=== PATIENT | male | born 1985 | race Caucasian/White ===

== ENCOUNTER 2017-05-23 00:35 | Emergency (ER) | payer MEDICAID ==
[~2017-05-23] VITALS: Ht 182.9 cm; Wt 77.8 kg
[~2017-05-23 00:35] MED LIST: CHLO10MO PO; CIPR7.5D2 EACH EAR; HYDR-3686 PO; KEN0.1O TP; NO HOME MEDS
[2017-05-23] MEDS ORDERED: naproxen 500mg tablet PO ONE (01:30)
[2017-05-23] MEDS ORDERED: HYDROcodone/acetaminophen 10/325mg tab PO ONE (01:30)
[2017-05-23] MEDS ORDERED: sulfamethoxazole/trimethoprim DS (800/160mg) tablet PO ONE (01:30)
[2017-05-23] MEDS ORDERED: HYDR-569 PO (02:19)
[2017-05-23] MEDS ORDERED: SULF1TAB49 PO (02:19)
[2017-05-23] MEDS ORDERED: NAPR-56 PO (02:19)
[2017-05-23] MEDS ORDERED: ACYC-202 PO (02:45)
[2017-05-23 02:47] VITALS: BP 122/58
[2017-05-24] MEDS ORDERED: DOXY100C43 PO (12:14)
== END 2017-05-23 02:48 | disposition home or self-care (01) ==
LOC: ER 00:35
DX: L03.113 Cellulitis of right upper limb (principal); B00.9 Herpesviral infection, unspecified; G89.29 Other chronic pain; Z56.0 Unemployment, unspecified; Z60.2 Problems related to living alone; Z79.899 Other long term (current) drug therapy
CPT/HCPCS: 10160; 99284; A6257; 20610

== ENCOUNTER 2017-05-24 09:51 | Emergency (ER) | payer MEDICAID ==
[~2017-05-24] VITALS: Ht 185.4 cm; Wt 78.5 kg
[~2017-05-24 09:51] MED LIST changes: +ACYC-202 PO; +HYDR-569 PO; +NAPR-56 PO; +SULF1TAB49 PO
[2017-05-24 10:00] VITALS: BP 108/81
[2017-05-24] MEDS ORDERED: LIDOcaine 1.5% w/epinephrine 1:200,000 5ml ampul IJ ONE ×2 (10:15→11:05)
[2017-05-24] MEDS ORDERED: DOXY100C43 PO (12:14)
== END 2017-05-24 12:25 | disposition home or self-care (01) ==
LOC: ER 09:53
DX: L02.413 Cutaneous abscess of right upper limb (principal); G89.29 Other chronic pain; Z56.0 Unemployment, unspecified; Z60.2 Problems related to living alone; Z79.899 Other long term (current) drug therapy
CPT/HCPCS: 10060; 99283; A6449; J3490; A6266

== ENCOUNTER 2017-08-15 15:16 | Emergency (ER) | payer MEDICAID ==
[~2017-08-15] VITALS: Ht 182.9 cm; Wt 78.8 kg
[~2017-08-15 15:16] MED LIST changes: -ACYC-202 PO; -NAPR-56 PO; -SULF1TAB49 PO
[2017-08-15 16:40] VITALS: BP 127/63
== END 2017-08-15 16:54 | disposition home or self-care (01) ==
LOC: ER 15:18
DX: R07.9 Chest pain, unspecified (principal); J02.9 Acute pharyngitis, unspecified; G89.29 Other chronic pain; Z60.2 Problems related to living alone; Z56.0 Unemployment, unspecified; Z79.899 Other long term (current) drug therapy; Z87.891 Personal history of nicotine dependence
CPT/HCPCS: 71046; 93005; 99284

== ENCOUNTER 2017-10-05 19:36 | Emergency (ER) | payer MEDICAID ==
[~2017-10-05] VITALS: Ht 185.4 cm; Wt 78.6 kg
[2017-10-05 19:40] VITALS: BP 140/105
[2017-10-05] MEDS ORDERED: MUPI15CR TOP (20:01)
[2017-10-05] MEDS ORDERED: BACDS PO (20:01)
== END 2017-10-05 20:15 | disposition home or self-care (01) ==
LOC: ER 19:37
DX: L03.114 Cellulitis of left upper limb (principal); L03.113 Cellulitis of right upper limb; L81.8 Other specified disorders of pigmentation; G89.29 Other chronic pain; Z60.2 Problems related to living alone; Z56.0 Unemployment, unspecified; Z79.899 Other long term (current) drug therapy
CPT/HCPCS: 99283

== ENCOUNTER 2019-02-01 22:39 | Emergency (ER) | payer MEDICAID ==
[~2019-02-01] VITALS: Ht 180.3 cm; Wt 81.8 kg
[~2019-02-01 22:39] MED LIST changes: +HYDR-4383 PO; -HYDR-569 PO; +MUPI15CR TOP
[2019-02-01] MEDS ORDERED: LORazepam 2 mg/ml vial IM ONE (23:00)
[2019-02-01] MEDS ORDERED: HYDROcodone/acetaminophen 10/325mg tab PO ONE (23:00)
[2019-02-01] MEDS ORDERED: LIDOcaine 1% w/EPI 1:200,000 injection 10mL vial IM ONE (23:35)
[2019-02-01] MEDS ORDERED: LIDOcaine 4% (40 mg/ml) topical solution 50ml TP ONE (23:35)
[2019-02-01] MEDS ORDERED: phenylephrine 1% (X-tra strg) 15ml nasal spray NS ONE (23:35)
[2019-02-01] MEDS ORDERED: LIDOcaine 1% W/epiNEPHrine 1:100,000 20ml vial IJ ONE (23:40)
[2019-02-02] MEDS ORDERED: CEPH500C5 PO (00:52)
[2019-02-02] MEDS ORDERED: cephalexin 500mg capsule PO ONE (01:05)
[2019-02-02 01:27] VITALS: BP 138/93
== END 2019-02-02 01:20 ==
LOC: ER 22:39
DX: S02.2XXA Fracture of nasal bones, initial encounter for closed fracture (principal); S01.21XA Laceration without foreign body of nose, initial encounter; I10 Essential (primary) hypertension; G89.29 Other chronic pain; F41.9 Anxiety disorder, unspecified; F31.9 Bipolar disorder, unspecified; F17.200 Nicotine dependence, unspecified, uncomplicated; F12.90 Cannabis use, unspecified, uncomplicated; Z60.2 Problems related to living alone; Z56.0 Unemployment, unspecified; Z79.899 Other long term (current) drug therapy; Y04.8XXA Assault by other bodily force, initial encounter; Y93.89 Activity, other specified; Y92.143 Cell of prison as the place of occurrence of the external cause; Y99.8 Other external cause status
CPT/HCPCS: 12001; 21315; 70160; 96372; 99284; J2060

== ENCOUNTER 2019-04-03 22:14 | Emergency (ER) | payer MEDICAID ==
[~2019-04-03] VITALS: Ht 182.9 cm; Wt 88.6 kg
[~2019-04-03 22:14] MED LIST changes: +CEPH500C5 PO
[2019-04-03] MEDS ORDERED: CefTRIAXone 250MG IM Kit w/LIDOcaine IM ONE (22:40)
[2019-04-03] MEDS ORDERED: azithromycin 250mg tablet PO ONE (22:40)
[2019-04-03 22:42] LABS: CLARITY,URINE CLEAR (Clear); COLOR,URINE YELLOW (Yellow); GLUCOSE, URINE NEGATIVE (Neg); KETONES,URINE NEGATIVE (Neg); LEUKOCYTE ESTERASE ,URINE NEGATIVE (Neg); NITRITES, URINE NEGATIVE (Neg); OCCULT BLOOD,URINE NEGATIVE (Neg); PH,URINE 8.5 (4.8-8.0); PROTEIN,URINE NEGATIVE (Neg); UROBILINOGEN,URINE 0.2 E.U/dL (0.2-1.0)
[2019-04-03 22:46] LABS: UA COLLECTION TYPE CLN CATCH MIDSTREAM
[2019-04-03 22:56] LABS: HEMATOCRIT 42.7 % (42.0-52.0); HEMOGLOBIN 14.5 g/dl (14.0-17.9)
[2019-04-03 22:58] LABS: BASOPHILS % (AUTO) 0.5 % (0-1); EOSINOPHILS # (AUTO) 0.3 X10'3 (0-0.9); LYMPHOCYTES # (AUTO) 3.8 X10'3 (1.1-4.8); LYMPHOCYTES % (AUTO) 39.5 % (21-51); MEAN CORPUSCULAR HEMOGLOBIN 27.9 PG (27.0-31.0); MEAN CORPUSCULAR VOLUME 82.1 FL (78-98); MONOCYTES # (AUTO) 0.9 X10'3 (0-0.9); MONOCYTES % (AUTO) 9.1 % (2-12); NEUTROPHILS # (AUTO) 4.7 X10'3 (1.8-7.7); NEUTROPHILS % (AUTO) 47.9 % (42-75); PLATELET COUNT 376 X10'3 (140-440); WHITE BLOOD COUNT 9.7 X10'3 (4.5-11.0)
[2019-04-03 23:05] LABS: ALANINE AMINOTRANSFERASE 59 U/L (12-78); ALBUMIN 4.2 G/DL (3.4-5.0); ALBUMIN/GLOBULIN RATIO 1.4 (1.1-1.5); ALKALINE PHOSPHATASE 83 IU/L (46-116); ANION GAP 7 (8-16); ASPARTATE AMINO TRANSFERASE 26 U/L (10-37); BILIRUBIN,TOTAL 0.2 MG/DL (0.1-1.0); BLOOD UREA NITROGEN 15 MG/DL (7-18); BUN/CREATININE RATIO 18.5 (5.4-32.0); CALCIUM 8.9 MG/DL (8.5-10.1); CHLORIDE 103 MMOL/L (99-107); CREATININE 0.81 MG/DL (0.60-1.10); GLUCOSE 104 MG/DL (70-104); LIPASE 100 U/L (73-393); POTASSIUM 3.4 MMOL/L (3.5-5.1); SODIUM 140 MMOL/L (135-145); TOTAL CARBON DIOXIDE 30.5 MMOL/L (24-32); TOTAL PROTEIN 7.3 G/DL (6.4-8.2); eGFR > 90 ML/MIN
[2019-04-03 23:25] VITALS: BP 138/98
== END 2019-04-03 23:28 | disposition home or self-care (01) ==
LOC: ER 22:14
DX: N34.2 Other urethritis (principal); I10 Essential (primary) hypertension; G89.29 Other chronic pain; F41.9 Anxiety disorder, unspecified; F31.9 Bipolar disorder, unspecified; F12.90 Cannabis use, unspecified, uncomplicated; F15.90 Other stimulant use, unspecified, uncomplicated; F17.200 Nicotine dependence, unspecified, uncomplicated; Z60.2 Problems related to living alone; Z79.899 Other long term (current) drug therapy
CPT/HCPCS: 36415; 80053; 81003; 83690; 85025; 87491; 87591; 96372; 99283; J0696

== ENCOUNTER 2019-05-07 11:16 | Emergency (ER) | payer MEDICAID ==
[~2019-05-07] VITALS: Ht 185.4 cm; Wt 83.0 kg
[2019-05-07 11:21] VITALS: BP 143/90
[2019-05-07 12:12] LABS: CLARITY,URINE CLEAR (Clear); COLOR,URINE YELLOW (Yellow); GLUCOSE, URINE NEGATIVE (Neg); KETONES,URINE NEGATIVE (Neg); LEUKOCYTE ESTERASE ,URINE NEGATIVE (Neg); NITRITES, URINE NEGATIVE (Neg); OCCULT BLOOD,URINE NEGATIVE (Neg); PROTEIN,URINE NEGATIVE (Neg); UROBILINOGEN,URINE 0.2 E.U/dL (0.2-1.0)
[2019-05-07 12:14] LABS: UA COLLECTION TYPE CLN CATCH MIDSTREAM
[2019-05-07] MEDS ORDERED: DOXY-1 PO (12:20)
== END 2019-05-07 12:32 | disposition home or self-care (01) ==
LOC: ER 11:16
DX: L73.9 Follicular disorder, unspecified (principal); B00.9 Herpesviral infection, unspecified; I10 Essential (primary) hypertension; G89.29 Other chronic pain; F41.9 Anxiety disorder, unspecified; F31.9 Bipolar disorder, unspecified; F12.90 Cannabis use, unspecified, uncomplicated; F15.90 Other stimulant use, unspecified, uncomplicated; Z60.2 Problems related to living alone; Z79.2 Long term (current) use of antibiotics; Z79.899 Other long term (current) drug therapy
CPT/HCPCS: 81003; 99283

== ENCOUNTER 2019-08-07 07:01 | Emergency (ER) | payer MEDICAID ==
[~2019-08-07] VITALS: Ht 185.4 cm; Wt 85.0 kg
[2019-08-07 07:02] VITALS: BP 138/99
[2019-08-07 07:36] LABS: CLARITY,URINE CLEAR (Clear); COLOR,URINE YELLOW (Yellow); GLUCOSE, URINE NEGATIVE (Neg); KETONES,URINE TRACE mg/dl (Neg); LEUKOCYTE ESTERASE ,URINE NEGATIVE (Neg); NITRITES, URINE NEGATIVE (Neg); OCCULT BLOOD,URINE NEGATIVE (Neg); PROTEIN,URINE NEGATIVE (Neg); UROBILINOGEN,URINE 0.2 E.U/dL (0.2-1.0)
[2019-08-07 07:46] LABS: UA COLLECTION TYPE VOIDED
[2019-08-07] MEDS ORDERED: PHEN-716 PO (08:14)
[2019-08-07] MEDS ORDERED: phenazopyridine 100mg tablet PO ONE (08:15)
== END 2019-08-07 08:21 | disposition home or self-care (01) ==
LOC: ER 07:01
DX: R30.0 Dysuria (principal); R36.9 Urethral discharge, unspecified; R10.30 Lower abdominal pain, unspecified; I10 Essential (primary) hypertension; G89.29 Other chronic pain; F41.9 Anxiety disorder, unspecified; F31.9 Bipolar disorder, unspecified; F17.200 Nicotine dependence, unspecified, uncomplicated; F12.90 Cannabis use, unspecified, uncomplicated; F15.90 Other stimulant use, unspecified, uncomplicated; Z60.2 Problems related to living alone; Z79.899 Other long term (current) drug therapy
CPT/HCPCS: 81003; 99283

== ENCOUNTER 2019-10-09 02:05 | Emergency (ER) | payer MEDICAID ==
[~2019-10-09] VITALS: Ht 180.3 cm; Wt 84.1 kg
[~2019-10-09 02:05] MED LIST changes: +PHEN-716 PO
[2019-10-09] MEDS ORDERED: azithromycin 250mg tablet PO ONE (02:45)
[2019-10-09] MEDS ORDERED: CefTRIAXone 250MG IM Kit w/LIDOcaine IM ONE (02:45)
[2019-10-09 02:59] VITALS: BP 137/104
== END 2019-10-09 03:01 | disposition home or self-care (01) ==
LOC: ER 02:06
DX: Z11.3 Encounter for screening for infections with a predominantly sexual mode of transmission (principal); R36.9 Urethral discharge, unspecified; I10 Essential (primary) hypertension; G89.29 Other chronic pain; F41.9 Anxiety disorder, unspecified; F31.9 Bipolar disorder, unspecified; F12.90 Cannabis use, unspecified, uncomplicated; F15.90 Other stimulant use, unspecified, uncomplicated; Z60.2 Problems related to living alone; Z79.2 Long term (current) use of antibiotics; Z79.899 Other long term (current) drug therapy
CPT/HCPCS: 36415; 87491; 87591; 96372; 99283; J0696

== ENCOUNTER 2020-01-23 20:57 | Emergency (ER) | payer MEDICAID ==
[~2020-01-23] VITALS: Ht 182.9 cm; Wt 78.8 kg
[2020-01-23 20:59] VITALS: BP 184/108
[2020-01-23] MEDS ORDERED: sulfamethoxazole/trimethoprim DS (800/160mg) tablet PO ONE (22:50)
[2020-01-23] MEDS ORDERED: cephalexin 250mg capsule PO ONE (22:50)
[2020-01-23] MEDS ORDERED: CEPH500C5 PO (22:53)
[2020-01-23] MEDS ORDERED: SULF1TAB49 PO (22:53)
== END 2020-01-23 22:59 | disposition home or self-care (01) ==
LOC: ER 20:58
DX: L03.115 Cellulitis of right lower limb (principal); I10 Essential (primary) hypertension; G89.29 Other chronic pain; F41.9 Anxiety disorder, unspecified; F31.9 Bipolar disorder, unspecified; F12.90 Cannabis use, unspecified, uncomplicated; F15.90 Other stimulant use, unspecified, uncomplicated; Z60.2 Problems related to living alone; Z79.2 Long term (current) use of antibiotics; Z79.899 Other long term (current) drug therapy
CPT/HCPCS: 99283

== ENCOUNTER 2020-02-14 03:54 | Emergency (ER) | payer MEDICAID ==
[~2020-02-14] VITALS: Ht 182.9 cm; Wt 72.4 kg
[~2020-02-14 03:54] MED LIST changes: -CEPH500C5 PO
[2020-02-14] MEDS ORDERED: cephalexin 500mg capsule PO ONE (04:30)
[2020-02-14] MEDS ORDERED: CEPH500C5 PO (05:18)
[2020-02-14 05:41] VITALS: BP 142/96
== END 2020-02-14 05:49 | disposition home or self-care (01) ==
LOC: ER 03:54
DX: S91.342A Puncture wound with foreign body, left foot, initial encounter (principal); I10 Essential (primary) hypertension; J45.909 Unspecified asthma, uncomplicated; G89.29 Other chronic pain; F41.9 Anxiety disorder, unspecified; F31.9 Bipolar disorder, unspecified; F12.90 Cannabis use, unspecified, uncomplicated; F15.90 Other stimulant use, unspecified, uncomplicated; F11.90 Opioid use, unspecified, uncomplicated; Z60.2 Problems related to living alone; Z79.899 Other long term (current) drug therapy; W45.8XXA Other foreign body or object entering through skin, initial encounter; Y93.89 Activity, other specified; Y92.89 Other specified places as the place of occurrence of the external cause; Y99.8 Other external cause status
CPT/HCPCS: 73630; 99283

== ENCOUNTER 2020-03-14 19:11 | Inpatient (IN) | payer MEDICAID ==
[~2020-03-14] VITALS: Ht 182.9 cm; Wt 94.8 kg
[~2020-03-14 19:11] MED LIST changes: +CEPH500C5 PO
--- NOTE | 2020-03-14 19:11 | NUR ---
Contacted lab to initiate MTP at the request of MD Stone.
[2020-03-14] MEDS ORDERED: iohexol 300mg/ml 100ml inj. ONE (19:18)
[2020-03-14] MEDS ORDERED: fentaNYL/PF 50MCG/1 ML 2ML syringe ONE (19:29)
--- NOTE | 2020-03-14 19:29 | NUR ---
per dr washington 1 unit blood, in rapid transfuer
[2020-03-14] MEDS ORDERED: fentaNYL/PF 50MCG/1 ML 2ML syringe IV ONE (19:30)
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
--- NOTE | 2020-03-14 19:30 | NUR ---
PER DR TELLO 2 L NS.
[2020-03-14 19:36] LABS: BASOPHILS # (AUTO) 0.1 X10'3 (0-0.2); BASOPHILS % (AUTO) 0.5 % (0-1); EOSINOPHILS # (AUTO) 0.2 X10'3 (0-0.9); EOSINOPHILS % (AUTO) 2.1 % (0-6); HEMATOCRIT 37.1 % (42.0-52.0); HEMOGLOBIN 11.9 g/dl (14.0-17.9); LYMPHOCYTES # (AUTO) 4.7 X10'3 (1.1-4.8); MEAN CORPUSCULAR HEMOGLOBIN 25.3 PG (27.0-31.0); MEAN CORPUSCULAR HGB CONC 32.1 g/dL (33.0-36.5); MEAN PLATELET VOLUME 7.5 FL (7.4-10.4); MONOCYTES # (AUTO) 0.6 X10'3 (0-0.9); NEUTROPHILS # (AUTO) 3.9 X10'3 (1.8-7.7); NEUTROPHILS % (AUTO) 41.4 % (42-75); PLATELET COUNT 400 X10'3 (140-440); RED CELL DISTRIBUTION WIDTH 15.4 % (11.5-14.5); WHITE BLOOD COUNT 9.4 X10'3 (4.5-11.0)
--- NOTE | 2020-03-14 19:37 | NUR ---
PT TO CT VIA [facility] WITH FAHEEM SALINAS, PT ON MONITOR.
[2020-03-14 19:51] LABS: ALANINE AMINOTRANSFERASE 259 U/L (12-78); ALBUMIN 3.7 G/DL (3.4-5.0); ALBUMIN/GLOBULIN RATIO 1.4 (1.1-1.5); ALKALINE PHOSPHATASE 68 IU/L (46-116); ANION GAP 10 (8-16); ASPARTATE AMINO TRANSFERASE 207 U/L (10-37); BILIRUBIN,TOTAL 0.2 MG/DL (0.1-1.0); BLOOD UREA NITROGEN 19 MG/DL (7-18); BUN/CREATININE RATIO 16.5 (5.4-32.0); CALCIUM 8.4 MG/DL (8.5-10.1); CHLORIDE 107 MMOL/L (99-107); CREATININE 1.15 MG/DL (0.60-1.10); GLUCOSE 161 MG/DL (70-104); POTASSIUM 3.4 MMOL/L (3.5-5.1); SODIUM 143 MMOL/L (135-145); TOTAL CARBON DIOXIDE 26.1 MMOL/L (24-32); TOTAL PROTEIN 6.4 G/DL (6.4-8.2); eGFR 74 ML/MIN
[2020-03-14 19:54] LABS: TROPONIN I < 0.04 NG/ML (0.0-0.05)
[2020-03-14] MEDS ORDERED: LIDOcaine 2% 10ml TOPICAL JELLY (Urojet) MM ONE (19:55)
[2020-03-14] MEDS ORDERED: normal saline 1000ML IV soln IVB ONE (20:05)
--- NOTE | 2020-03-14 20:06 | NUR ---
lab was contacted for MTP update they are aware that we are continuing the MTP - Per MD Jim he wants the 6 units crossmatched.
[2020-03-14] MEDS ORDERED: LIDOcaine 1% (10mg/ml) 2ml vial ONE (20:09)
[2020-03-14] MEDS ORDERED: iohexol 350MG/ML 100ml bottle IV ONE (20:21)
[2020-03-14] MEDS ORDERED: tranexamic acid 100mg/ml inj. IV ONE (20:25)
[2020-03-14] MEDS ORDERED: TETanus/Pertussis (Acell)/Diphther VAC/PF (Tdap-Adult) 0.5ml syringe IMVAC ONE (20:25)
[2020-03-14] MEDS ORDERED: tranexamic acid 1gm/0.7% sal. 100 ML IV ONE (20:25)
--- NOTE | 2020-03-14 20:25 | NUR ---
per MD Fernandez, give 1G txa then another 1G over 8 hrs, 2G ancef and a tetanus shot. Ordered entered.
[2020-03-14] MEDS ORDERED: heparin 10,000 units/1 ML INJ ONE (20:33)
[2020-03-14] MEDS ORDERED: ceFAZolin 2gm in dextrose, iso 50 ML IV ONE (20:35)
[2020-03-14] MEDS ORDERED: midazolam 2 mg/2 ml injection ONE (20:39)
[2020-03-14] MEDS ORDERED: fentaNYL /PF 50mcg/ml 5ml ampule ONE (20:39)
[2020-03-14] MEDS ORDERED: neostigmine methylsulfate 1 MG/ML 10ml vial ONE (20:42)
[2020-03-14] MEDS ORDERED: pancuronium br 1mg/ml inj IV ONE (20:42)
[2020-03-14] MEDS ORDERED: sevoflurane 250ml liquid IH ONE (20:42)
[2020-03-14] MEDS ORDERED: propofol inj 20 ML IV ONE (20:47)
[2020-03-14] MEDS ORDERED: rocuronium 10mg/ml inj IV ONE (20:48)
[2020-03-14] MEDS ORDERED: ePHEDrine 50MG/ML INJ. ONE (20:49)
--- NOTE | 2020-03-14 20:51 | NUR ---
BLOOD TRANSFUSSION DOCUMENTED ON THE [facility], BLOOD & BLOOD PRODUCT ADMINISTRATION RECORD, ADDENDUM A.
[2020-03-14 20:53] LABS: URINE AMPHETAMINE SCREEN POSITIVE (Neg); URINE BARBITUATE SCREEN NEGATIVE (Neg); URINE BENZODIAZEPINES SCREEN NEGATIVE (Neg); URINE CANNABINOID SCREEN NEGATIVE (Neg); URINE COCAINE SCREEN NEGATIVE (Neg); URINE METHADONE SCREEN POSITIVE (Neg); URINE OPIATE SCREEN NEGATIVE (Neg); URINE PHENCYCLIDINE SCREEN NEGATIVE (Neg)
[2020-03-14] MEDS ORDERED: meperidine/PF 25mg/ml syringe IV PRN ×3 (20:55)
[2020-03-14] MEDS ORDERED: morphine 2 MG/ML inj. syringe IV PRN (20:55)
[2020-03-14] MEDS ORDERED: ondansetron/PF 4mg/2ml inj IV PRN (20:55)
[2020-03-14] MEDS ORDERED: proCHLORperazine 10 MG/2 ml inj IV PRN (20:55)
[2020-03-14] MEDS ORDERED: ringers solution, lacted 1,000 ML IV SCH (20:55)
[2020-03-14] MEDS ORDERED: morphine 4 MG/ML inj SYRINge IV PRN (20:55)
[2020-03-14 21:04] LABS: CLARITY,URINE CLEAR (Clear); COLOR,URINE YELLOW (Yellow); GLUCOSE, URINE NEGATIVE (Neg); KETONES,URINE NEGATIVE (Neg); LEUKOCYTE ESTERASE ,URINE NEGATIVE (Neg); NITRITES, URINE NEGATIVE (Neg); OCCULT BLOOD,URINE MODERATE (Neg); PH,URINE 6.5 (4.8-8.0); PROTEIN,URINE 30 mg/dl (Neg); UROBILINOGEN,URINE 0.2 E.U/dL (0.2-1.0)
[2020-03-14 21:10] LABS: UA COLLECTION TYPE FOLEY CATH
[2020-03-14 21:32] LABS: BACTERIA,URINE FEW /HPF (Neg); WBC,URINE 0-4 /HPF (0-4)
[2020-03-14 21:33] LABS: HYALINE CASTS 0-3 /LPF (NEGATIVE); SQUAMOUS EPITHELIAL CELL,UR FEW /LPF (FEW)
[2020-03-14] MEDS ORDERED: ceFAZolin 1000mg inj ONE ×2 (21:54)
[2020-03-14] MEDS ORDERED: TRANEXAMIC ACID IV ONE (22:15)
[2020-03-14] MEDS ORDERED: NORMAL SALINE IV ONE (22:15)
[2020-03-14] MEDS ORDERED: morphine 10mg/ml inj. ONE (22:41)
[2020-03-14 23:10] VITALS: BP 120/79
--- NOTE | 2020-03-14 23:10 | NUR ---
Received from OR via BED, accompanied by Anesthesiologist LUIS ALBERTO and report given by Anesthesiolgist. PT IS INTUBATED, ON VENTILATOR. CXR DONE FOR ETT AND CVL PLACEMENT. FENTANYL AND VERSED GTTS STARTED FOR SEDATION AND PAIN CONTROL.PT HAS IO TO LLE, 20G PIV R FOOT, CVL RIJ AND R RADIAL ARTERIAL LINE. R LATERAL CT TO SX, NO AIR LEAK SEEN. SPLINT TO LFA. LARGE MIDLINE ABD DSG. FC PATENT. PT TEMP 35.6, VISHAL HUGGER IN PLACE. FC PATENT. SCDS ON.
[2020-03-14 23:20] VITALS: BP 179/128
[2020-03-14 23:30] VITALS: BP 188/134
[2020-03-14 23:31] LABS: ABG BASE EXCESS -6.1 mmol/L (-2.0-2.0); ABG PCO2 (T) 39.7 mmHg (35.0-48.0); ABG PO2 (T) 211.1 mmHg (75.0-100.0); FCOHb 0.8 % (0.0-3.9); FMetHb 0.1 % (0.0-1.5); FO2Hb 98.1 % (94-97); PEEP 5 cm H2O; RESPIRATORY RATE 12 b/min; TIDAL VOLUME 650 mL; TOTAL HEMOGLOBIN 12.8 G/dl (14.0-18.0)
[2020-03-14 23:40] VITALS: BP 196/132
--- NOTE | 2020-03-14 23:47 | NUR ---
THE BULLET FRAGMENT REMOVED FROM THE PT WAS HANDED OFF BY GOLD FROM THE OR TO SHELLIE SEALS. BOZENA THEN HANDED IT OVER TO ME AND I PASSED IT OFF TO [employer] OFFICER MELINDA CHOW - CASE #[id number]
[2020-03-14 23:50] VITALS: BP 116/89
[2020-03-14 23:58] LABS: HEMOGLOBIN 12.8 g/dl (14.0-17.9)
[2020-03-15] VITALS (24 sets, daily range): BP systolic 96–130; BP diastolic 54–85
[2020-03-15] LABS: BASOPHILS % (AUTO) 0.1 % (0-1); EOSINOPHILS % (AUTO) 0.2 % (0-6); HEMATOCRIT 38.6 % (42.0-52.0); LYMPHOCYTES # (AUTO) 2.5 X10'3 (1.1-4.8); LYMPHOCYTES % (AUTO) 9.2 % (21-51); MEAN CORPUSCULAR HEMOGLOBIN 28.8 PG (27.0-31.0); MEAN CORPUSCULAR HGB CONC 33.3 g/dL (33.0-36.5); MEAN CORPUSCULAR VOLUME 86.4 FL (78-98); MEAN PLATELET VOLUME 7.5 FL (7.4-10.4); MONOCYTES # (AUTO) 2.1 X10'3 (0-0.9); NEUTROPHILS # (AUTO) 22.3 X10'3 (1.8-7.7); NEUTROPHILS % (AUTO) 82.5 % (42-75); PLATELET COUNT 171 X10'3 (140-440); RED BLOOD COUNT 4.46 X10'6 (4.70-6.10); RED CELL DISTRIBUTION WIDTH 17.8 % (11.5-14.5)
[2020-03-15] MEDS ORDERED: ceFAZolin/D5W- 1GM premix 50 ML IV SCH
--- NOTE | 2020-03-15 | NUR ---
Patient in room ICU 2042. I have received report from Angelica SALINAS and had the opportunity to ask questions and assume patient care. Chest Tube dressing saturated, new dressing applied, no further problems.
--- NOTE | 2020-03-15 | NUR ---
Report GIVEN to receiving nurse. Transferred CARE TO ABRAM SALINAS. Special Issues communicated to receiving nurse.
[2020-03-15 00:09] LABS: PARTIAL THROMBOPLASTIN TIME 30 SECONDS (22-32)
[2020-03-15 00:16] LABS: ALANINE AMINOTRANSFERASE 335 U/L (12-78); ALBUMIN 2.2 G/DL (3.4-5.0); ALBUMIN/GLOBULIN RATIO 1.1 (1.1-1.5); ALKALINE PHOSPHATASE 48 IU/L (46-116); ANION GAP 6 (8-16); ASPARTATE AMINO TRANSFERASE 231 U/L (10-37); BILIRUBIN,TOTAL 0.8 MG/DL (0.1-1.0); BLOOD UREA NITROGEN 15 MG/DL (7-18); BUN/CREATININE RATIO 21.4 (5.4-32.0); CALCIUM 6.1 MG/DL (8.5-10.1); CHLORIDE 111 MMOL/L (99-107); GLUCOSE 207 MG/DL (70-104); MAGNESIUM 1.4 MG/DL (1.5-2.4); POTASSIUM 5.8 MMOL/L (3.5-5.1); SODIUM 139 MMOL/L (135-145); TOTAL CARBON DIOXIDE 21.6 MMOL/L (24-32); TOTAL PROTEIN 4.2 G/DL (6.4-8.2); eGFR > 90 ML/MIN
[2020-03-15] MEDS ORDERED: insulin Lispro (HumaLOG) vial - multi-dose SQ SCH (00:25)
[2020-03-15] MEDS ORDERED: glucagon, human recombinant 1mg kit SUBCUT PRN (00:25)
[2020-03-15] MEDS ORDERED: dextrose 50%-water 50ml dispensing syringe IV PRN ×2 (00:25)
[2020-03-15] MEDS ORDERED: MESSAGE TO PHARMACY PO ONE (00:25)
[2020-03-15] MEDS ORDERED: dextrose ORAL solution 15 GM/59 ML bottle PO PRN ×2 (00:25)
[2020-03-15] MEDS ORDERED: magnesium hydroxide 30ml (MOM) UD suspension PO PRN (00:25)
[2020-03-15] MEDS ORDERED: acetaminophen 325mg tablet PO PRN ×2 (00:25)
[2020-03-15] MEDS: normal saline 1000ml 1,000 ML IV SCH ×3 (00:35→20:07)
[2020-03-15] MEDS: FENTANYL-0.9 % NACL/PF 100 ML IV PRN ×5 (00:40→20:58)
[2020-03-15] MEDS ORDERED: calcium chloride inj. 1,000 MG in normal saline 100ml IV soln 100 ML IV ONE (00:40)
[2020-03-15] MEDS: midazolam 100mg in NS 100ml 100 ML IV PRN ×5 (00:40→19:36)
[2020-03-15 01:15] LABS: PLATELET COUNT 171 X10'3 (140-440)
--- NOTE | 2020-03-15 03:00 | NUR ---
Pt waking up from anesthesia, trying to sit up, kicking legs, pulling against restraints. Isaiah Aceves [employer]IN[employer] TEAM MEMBER instructed to just make sure he is sedated. To turn sedation up as quickly and as high as necessary. Pt has Drug abuse Hx and has high tolerance, she do not want anything dislodged and he is very restless.
[2020-03-15 03:31] LABS: BASOPHILS % (AUTO) 0 % (0-1); EOSINOPHILS % (AUTO) 0 % (0-6); HEMATOCRIT 33.5 % (42.0-52.0); HEMOGLOBIN 11.2 g/dl (14.0-17.9); LYMPHOCYTES # (AUTO) 1.4 X10'3 (1.1-4.8); LYMPHOCYTES % (AUTO) 6.4 % (21-51); MEAN CORPUSCULAR HEMOGLOBIN 28.7 PG (27.0-31.0); MEAN CORPUSCULAR HGB CONC 33.4 g/dL (33.0-36.5); MEAN CORPUSCULAR VOLUME 85.7 FL (78-98); MEAN PLATELET VOLUME 7.7 FL (7.4-10.4); MONOCYTES # (AUTO) 1.7 X10'3 (0-0.9); MONOCYTES % (AUTO) 7.9 % (2-12); NEUTROPHILS # (AUTO) 18.8 X10'3 (1.8-7.7); NEUTROPHILS % (AUTO) 85.7 % (42-75); PLATELET COUNT 175 X10'3 (140-440); RED BLOOD COUNT 3.91 X10'6 (4.70-6.10); RED CELL DISTRIBUTION WIDTH 17.6 % (11.5-14.5)
[2020-03-15 03:51] LABS: ABG OXYGEN SATURATION 98.3 % (94-97); ABG PCO2 (T) 43.8 mmHg (35.0-48.0); ABG PO2 (T) 138.7 mmHg (75.0-100.0); FCOHb 0.6 % (0.0-3.9); FO2Hb 97.7 % (94-97); PATIENT TEMPERATURE 37.6; PEEP 5 cm H2O; RESPIRATORY RATE 12 b/min; TIDAL VOLUME 650 mL; TOTAL HEMOGLOBIN 11.9 G/dl (14.0-18.0)
[2020-03-15 03:51] LABS: ALANINE AMINOTRANSFERASE 306 U/L (12-78); ALBUMIN 2.2 G/DL (3.4-5.0); ALKALINE PHOSPHATASE 44 IU/L (46-116); ANION GAP 8 (8-16); ASPARTATE AMINO TRANSFERASE 185 U/L (10-37); BILIRUBIN,TOTAL 1.3 MG/DL (0.1-1.0); BLOOD UREA NITROGEN 16 MG/DL (7-18); BUN/CREATININE RATIO 18.8 (5.4-32.0); CALCIUM 7.1 MG/DL (8.5-10.1); CHLORIDE 112 MMOL/L (99-107); CREATININE 0.85 MG/DL (0.60-1.10); GLUCOSE 173 MG/DL (70-104); MAGNESIUM 1.5 MG/DL (1.5-2.4); PHOSPHORUS 3.3 MG/DL (2.3-4.5); POTASSIUM 4.3 MMOL/L (3.5-5.1); SODIUM 141 MMOL/L (135-145); TOTAL CARBON DIOXIDE 21.5 MMOL/L (24-32); TOTAL PROTEIN 4.4 G/DL (6.4-8.2); eGFR > 90 ML/MIN
[2020-03-15 06:25] LABS: ANISOCYTOSIS 1+; BURR CELLS 1+; PLATELET ESTIMATE NORMAL; TOTAL CELLS COUNTED 100
[2020-03-15 06:28] LABS: ANISOCYTOSIS 1+; BURR CELLS 1+; PLATELET ESTIMATE NORMAL; TOTAL CELLS COUNTED 100
--- NOTE | 2020-03-15 06:46 | NUR ---
Problems reprioritized. Patient report given, questions answered & plan of care reviewed with Elise SALINAS.
[2020-03-15] MEDS: pantoprazole 40 MG vial IV SCH (07:40)
[2020-03-15 07:42] LABS: HEMATOCRIT 32.7 % (42.0-52.0); HEMOGLOBIN 11.4 g/dl (14.0-17.9); MEAN CORPUSCULAR HEMOGLOBIN 29.6 PG (27.0-31.0); MEAN CORPUSCULAR HGB CONC 34.9 g/dL (33.0-36.5); MEAN CORPUSCULAR VOLUME 84.7 FL (78-98); MEAN PLATELET VOLUME 7.6 FL (7.4-10.4); PLATELET COUNT 171 X10'3 (140-440); RED BLOOD COUNT 3.86 X10'6 (4.70-6.10); RED CELL DISTRIBUTION WIDTH 17.6 % (11.5-14.5); WHITE BLOOD COUNT 18.3 X10'3 (4.5-11.0)
[2020-03-15] MEDS ORDERED: gentamicin inj 400 MG in normal saline 100ml IV soln 100 ML IV STA ×2 (11:12→12:04)
[2020-03-15] MEDS: propofol 1000mg/100ml bottle 100 ML IV SCH ×2 (11:25→16:45)
[2020-03-15 11:32] LABS: HEMATOCRIT 31.9 % (42.0-52.0); HEMOGLOBIN 10.8 g/dl (14.0-17.9); MEAN CORPUSCULAR HEMOGLOBIN 28.6 PG (27.0-31.0); MEAN CORPUSCULAR HGB CONC 33.8 g/dL (33.0-36.5); MEAN CORPUSCULAR VOLUME 84.5 FL (78-98); MEAN PLATELET VOLUME 8.1 FL (7.4-10.4); PLATELET COUNT 189 X10'3 (140-440); RED BLOOD COUNT 3.77 X10'6 (4.70-6.10); RED CELL DISTRIBUTION WIDTH 17.8 % (11.5-14.5); WHITE BLOOD COUNT 16.9 X10'3 (4.5-11.0)
[2020-03-15] MEDS ORDERED: acetaminophen 1,000mg/100ml IV 100 ML IV ONE (11:35)
[2020-03-15] MEDS ORDERED: gentamicin inj 400 MG in normal saline 100ml IV soln 90 ML IV STA (11:40)
[2020-03-15 14:49] LABS: HEMATOCRIT 30.3 % (42.0-52.0); HEMOGLOBIN 10.5 g/dl (14.0-17.9); MEAN CORPUSCULAR HEMOGLOBIN 29.6 PG (27.0-31.0); MEAN CORPUSCULAR HGB CONC 34.8 g/dL (33.0-36.5); MEAN PLATELET VOLUME 7.9 FL (7.4-10.4); PLATELET COUNT 178 X10'3 (140-440); RED BLOOD COUNT 3.57 X10'6 (4.70-6.10); RED CELL DISTRIBUTION WIDTH 18.3 % (11.5-14.5); WHITE BLOOD COUNT 16.3 X10'3 (4.5-11.0)
[2020-03-15] MEDS: ceFAZolin/D5W- 1GM premix 50 ML IV SCH (15:43)
--- NOTE | 2020-03-15 17:51 | NUR ---
Pt getting slightly more tachy, dropping o2 sats from 99-100 to 95%, cvp 4, bp marginal, etco2 dropped from 30 consistently all day to 28, temp increasing to 38.7 despite tylenol, ice bags, and fan. Currently giving pt 250cc NS x2 for possible volume depletion after sx. Vital signs improving
[2020-03-15 19:27] LABS: HEMATOCRIT 31.1 % (42.0-52.0); HEMOGLOBIN 10.5 g/dl (14.0-17.9); MEAN CORPUSCULAR HEMOGLOBIN 28.8 PG (27.0-31.0); MEAN CORPUSCULAR HGB CONC 33.9 g/dL (33.0-36.5); PLATELET COUNT 189 X10'3 (140-440); RED BLOOD COUNT 3.66 X10'6 (4.70-6.10); RED CELL DISTRIBUTION WIDTH 17.9 % (11.5-14.5); WHITE BLOOD COUNT 15.7 X10'3 (4.5-11.0)
[2020-03-15] MEDS: insulin glargine (Lantus) pen - multi-dose SQ SCH (20:59)
[2020-03-15 23:52] LABS: HEMATOCRIT 31.7 % (42.0-52.0); HEMOGLOBIN 10.6 g/dl (14.0-17.9); MEAN CORPUSCULAR HEMOGLOBIN 28.5 PG (27.0-31.0); MEAN CORPUSCULAR HGB CONC 33.6 g/dL (33.0-36.5); MEAN CORPUSCULAR VOLUME 84.9 FL (78-98); MEAN PLATELET VOLUME 8.1 FL (7.4-10.4); PLATELET COUNT 203 X10'3 (140-440); RED BLOOD COUNT 3.73 X10'6 (4.70-6.10); RED CELL DISTRIBUTION WIDTH 18.1 % (11.5-14.5); WHITE BLOOD COUNT 19.1 X10'3 (4.5-11.0)
[2020-03-16] VITALS (24 sets, daily range): BP systolic 101–152; BP diastolic 60–93
[2020-03-16] MEDS: ceFAZolin/D5W- 1GM premix 50 ML IV SCH ×2 (00:22→07:31)
[2020-03-16] MEDS: midazolam 100mg in NS 100ml 100 ML IV PRN ×5 (00:22→19:42)
[2020-03-16] MEDS: propofol 1000mg/100ml bottle 100 ML IV SCH ×4 (00:24→21:18)
[2020-03-16] MEDS: FENTANYL-0.9 % NACL/PF 100 ML IV PRN ×5 (02:06→22:32)
[2020-03-16] MEDS: mineral oil/petrolatum ophthal oint EACHEYE SCH ×4 (02:06→19:42)
[2020-03-16 03:08] LABS: PARTIAL THROMBOPLASTIN TIME 34 SECONDS (22-32)
[2020-03-16 03:21] LABS: ALANINE AMINOTRANSFERASE 487 U/L (12-78); ALBUMIN 2.1 G/DL (3.4-5.0); ALBUMIN/GLOBULIN RATIO 0.7 (1.1-1.5); ALKALINE PHOSPHATASE 51 IU/L (46-116); ANION GAP 10 (8-16); ASPARTATE AMINO TRANSFERASE 322 U/L (10-37); BILIRUBIN,TOTAL 0.6 MG/DL (0.1-1.0); BLOOD UREA NITROGEN 17 MG/DL (7-18); BUN/CREATININE RATIO 21.8 (5.4-32.0); CHLORIDE 109 MMOL/L (99-107); CREATININE 0.78 MG/DL (0.60-1.10); GLUCOSE 127 MG/DL (70-104); MAGNESIUM 1.5 MG/DL (1.5-2.4); PHOSPHORUS 1.9 MG/DL (2.3-4.5); POTASSIUM 4.3 MMOL/L (3.5-5.1); SODIUM 141 MMOL/L (135-145); TOTAL CARBON DIOXIDE 22.4 MMOL/L (24-32); TOTAL PROTEIN 5.1 G/DL (6.4-8.2); TRIGLYCERIDES 123 MG/DL (20-135); eGFR > 90 ML/MIN
[2020-03-16 03:40] LABS: ABG BASE EXCESS -4.3 mmol/L (-2.0-2.0); ABG HCO3 19.7 mmol/L (22.0-26.0); ABG OXYGEN SATURATION 88.5 % (94-97); ABG PCO2 (T) 34.3 mmHg (35.0-48.0); ABG PO2 (T) 56.2 mmHg (75.0-100.0); FCOHb 0.4 % (0.0-3.9); FMetHb 0.3 % (0.0-1.5); FO2Hb 87.9 % (94-97); PATIENT TEMPERATURE 38.3; PEEP 5 cm H2O; RESPIRATORY RATE 12 b/min; TIDAL VOLUME 650 mL; TOTAL HEMOGLOBIN 10.8 G/dl (14.0-18.0)
[2020-03-16 03:49] LABS: HEMOGLOBIN 10.4 g/dl (14.0-17.9); MEAN CORPUSCULAR HEMOGLOBIN 28.7 PG (27.0-31.0); MEAN CORPUSCULAR HGB CONC 33.6 g/dL (33.0-36.5); MEAN CORPUSCULAR VOLUME 85.5 FL (78-98); MEAN PLATELET VOLUME 8.3 FL (7.4-10.4); PLATELET COUNT 198 X10'3 (140-440); RED BLOOD COUNT 3.62 X10'6 (4.70-6.10); WHITE BLOOD COUNT 20.2 X10'3 (4.5-11.0)
[2020-03-16] MEDS: normal saline 1000ml 1,000 ML IV SCH ×2 (05:16→16:20)
[2020-03-16 07:02] LABS: ANISOCYTOSIS 1+; MICROCYTOSIS 1+; PLATELET ESTIMATE NORMAL
[2020-03-16 07:05] LABS: BANDS% (MANUAL) 7 % (0-10)
[2020-03-16 07:06] LABS: LYMPHOCYTES % (MANUAL) 7 % (21-51); MONOCYTES % (MANUAL) 5 % (2-12)
[2020-03-16 07:07] LABS: NEUTROPHILS % (MANUAL) 81 % (42-75)
[2020-03-16] MEDS: pantoprazole 40 MG vial IV SCH (07:31)
[2020-03-16] MEDS ORDERED: propofol 10mg/ml 20ml vial IV ONE (10:41)
[2020-03-16] MEDS ORDERED: sevoflurane 250ml liquid IH ONE (10:41)
--- NOTE | 2020-03-16 11:00 | NUR ---
Patient to OR
[2020-03-16] MEDS ORDERED: 0.9 % SODIUM CHLORIDE 10 ML VIAL ONE ×2 (11:22)
[2020-03-16] MEDS ORDERED: ceFAZolin 1000mg inj ONE ×2 (11:22)
[2020-03-16] MEDS ORDERED: fentaNYL /PF 50mcg/ml 5ml ampule ONE ×2 (11:34→12:12)
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
--- NOTE | 2020-03-16 18:11 | NUR ---
Problems reprioritized. Patient report given, questions answered & plan of care reviewed with Leonarda SALINAS.
--- NOTE | 2020-03-16 18:15 | NUR ---
Patient in room ICU 2042. I have received report from BRAD Acosta and had the opportunity to ask questions and assume patient care. Patient is intubated and sedated. Patient with Right chest tube in place to suction. no air leak noted. Left forearm is in a splint, capillary refill intact.
[2020-03-16] MEDS: labetalol 20mg/4ml (5mg/ml) syringe IV PRN (20:11)
[2020-03-16] MEDS: acetaminophen 650mg rectal suppository RC PRN (20:12)
--- NOTE | 2020-03-16 20:37 | NUR ---
Patients Grandmother Yoksata Alejo called. She relates that she just found out he was in the hospital. Update as to patients condition given. She relates that patients mother Naty hill should be a contact. I explained to her that no person by that name is on his contact list. Jacqueline Fenton who is listed as a contact, according to Yokasta, should be listed as Sharon Fenton who is the mother of his daughter. I explained that for now she will be the main contact for Eder. Confimed phone numbers: [phone] cell, home.
[2020-03-16] MEDS: insulin glargine (Lantus) pen - multi-dose SQ SCH (21:00)
[2020-03-17] VITALS (28 sets, daily range): BP systolic 124–162; BP diastolic 61–84
[2020-03-17] MEDS: midazolam 100mg in NS 100ml 100 ML IV PRN ×5 (00:34→19:58)
[2020-03-17] MEDS: normal saline 1000ml 1,000 ML IV SCH ×3 (02:05→22:34)
[2020-03-17] MEDS: mineral oil/petrolatum ophthal oint EACHEYE SCH ×4 (02:05→19:48)
[2020-03-17 02:44] LABS: BASOPHILS % (AUTO) 0.2 % (0-1); EOSINOPHILS # (AUTO) 0.2 X10'3 (0-0.9); EOSINOPHILS % (AUTO) 1.3 % (0-6); HEMATOCRIT 22.4 % (42.0-52.0); HEMOGLOBIN 7.8 g/dl (14.0-17.9); LYMPHOCYTES # (AUTO) 2.1 X10'3 (1.1-4.8); LYMPHOCYTES % (AUTO) 16.8 % (21-51); MEAN CORPUSCULAR HEMOGLOBIN 29.4 PG (27.0-31.0); MEAN CORPUSCULAR HGB CONC 34.8 g/dL (33.0-36.5); MEAN CORPUSCULAR VOLUME 84.4 FL (78-98); MONOCYTES # (AUTO) 1.4 X10'3 (0-0.9); MONOCYTES % (AUTO) 10.8 % (2-12); NEUTROPHILS % (AUTO) 70.9 % (42-75); PLATELET COUNT 185 X10'3 (140-440); RED BLOOD COUNT 2.65 X10'6 (4.70-6.10); RED CELL DISTRIBUTION WIDTH 18.1 % (11.5-14.5); WHITE BLOOD COUNT 12.6 X10'3 (4.5-11.0)
[2020-03-17] MEDS: FENTANYL-0.9 % NACL/PF 100 ML IV PRN ×5 (02:51→20:31)
[2020-03-17 03:01] LABS: PARTIAL THROMBOPLASTIN TIME 39 SECONDS (22-32)
[2020-03-17 03:09] LABS: ALANINE AMINOTRANSFERASE 308 U/L (12-78); ALBUMIN 1.6 G/DL (3.4-5.0); ALBUMIN/GLOBULIN RATIO 0.5 (1.1-1.5); ALKALINE PHOSPHATASE 59 IU/L (46-116); ANION GAP 8 (8-16); ASPARTATE AMINO TRANSFERASE 196 U/L (10-37); BILIRUBIN,TOTAL 0.4 MG/DL (0.1-1.0); BLOOD UREA NITROGEN 13 MG/DL (7-18); BUN/CREATININE RATIO 20.3 (5.4-32.0); CALCIUM 6.9 MG/DL (8.5-10.1); CHLORIDE 109 MMOL/L (99-107); CREATININE 0.64 MG/DL (0.60-1.10); GLUCOSE 96 MG/DL (70-104); MAGNESIUM 1.8 MG/DL (1.5-2.4); PHOSPHORUS 1.3 MG/DL (2.3-4.5); POTASSIUM 3.6 MMOL/L (3.5-5.1); SODIUM 142 MMOL/L (135-145); TOTAL CARBON DIOXIDE 25.2 MMOL/L (24-32); TOTAL PROTEIN 4.8 G/DL (6.4-8.2); eGFR > 90 ML/MIN
[2020-03-17 03:10] LABS: ABG BASE EXCESS 1.3 mmol/L (-2.0-2.0); ABG HCO3 25.7 mmol/L (22.0-26.0); ABG OXYGEN SATURATION 97.3 % (94-97); ABG PCO2 (T) 40.3 mmHg (35.0-48.0); FCOHb 0.1 % (0.0-3.9); FMetHb 0.1 % (0.0-1.5); FO2Hb 97.1 % (94-97); PATIENT TEMPERATURE 37.5; PEEP 5 cm H2O; RESPIRATORY RATE 12 b/min; TIDAL VOLUME 650 mL; TOTAL HEMOGLOBIN 8.3 G/dl (14.0-18.0)
--- NOTE | 2020-03-17 03:15 | NUR ---
Hgb 7.8, Hct 22.4. Isaiah Aceves NP notified. Isaiah Aceves NP made phone call to consent for blood to Yokasta Alejo, patients grandmother. Consent given. RN witnessed phone call. Isaiah Aceves NP to place orders.
[2020-03-17] MEDS: propofol 1000mg/100ml bottle 100 ML IV SCH ×4 (04:52→19:59)
[2020-03-17] MEDS: labetalol 20mg/4ml (5mg/ml) syringe IV PRN ×2 (04:56→19:04)
--- NOTE | 2020-03-17 06:17 | NUR ---
Problems reprioritized. Patient report given, questions answered & plan of care reviewed with BRAD Olivares.
[2020-03-17] MEDS: pantoprazole 40 MG vial IV SCH (07:17)
[2020-03-17 09:17] LABS: HEMATOCRIT 24.9 % (42.0-52.0); HEMOGLOBIN 8.5 g/dl (14.0-17.9); MEAN CORPUSCULAR HEMOGLOBIN 29.2 PG (27.0-31.0); MEAN CORPUSCULAR HGB CONC 33.9 g/dL (33.0-36.5); MEAN CORPUSCULAR VOLUME 86.2 FL (78-98); MEAN PLATELET VOLUME 8.1 FL (7.4-10.4); PLATELET COUNT 184 X10'3 (140-440); RED BLOOD COUNT 2.89 X10'6 (4.70-6.10); RED CELL DISTRIBUTION WIDTH 17.6 % (11.5-14.5); WHITE BLOOD COUNT 12.2 X10'3 (4.5-11.0)
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
--- NOTE | 2020-03-17 18:13 | NUR ---
Patient in room ICU 2042. I have received report from BRAD Olivares and had the opportunity to ask questions and assume patient care.
[2020-03-17] MEDS: insulin glargine (Lantus) pen - multi-dose SQ SCH (19:48)
[2020-03-17] MEDS ORDERED: midazolam 2 mg/2 ml injection IV PRN (22:15)
--- NOTE | 2020-03-17 22:27 | NUR ---
Patients SBP 145-150 after bolus with pain medication and sedation. 5 mg Labetalol administered at 1900 per order. Isaiah Aceves NP notified of patients hypertension. Order for 5mg Labetalol IV Once, now.
[2020-03-17] MEDS ORDERED: labetalol 20mg/4ml (5mg/ml) syringe IV ONE (22:30)
[2020-03-18] VITALS (29 sets, daily range): BP systolic 104–158; BP diastolic 56–106
--- NOTE | 2020-03-18 | NUR ---
Patient with improved BP after additional Labetalol 5mg administration. Patient continues to have pain response with care activities, muscle tension and tremor, facial grimace along with asynchrony with the ventilator requiring bolus of sedation medications. No sedation vacation given, patient moves all extremities, does not open eyes. Patient becomes hypertensive, tachycardic and has asynchrony with the ventilator: coughing, not obtaining tidal volumes with decreased sedation. Due to the nature of the patients wounds and surgical site a full sedation vacation was not given to the patient. See IV spreadsheet for the increase in medications and bolus' administered. TUBE FEEDING STOPPED at 0000. Patient to go back to OR this morning. placed NPO at midnight. OG tube placed back on low intermittent suction.
[2020-03-18] MEDS: FENTANYL-0.9 % NACL/PF 100 ML IV PRN ×5 (00:24→17:25)
[2020-03-18] MEDS: midazolam 100mg in NS 100ml 100 ML IV PRN ×4 (00:43→16:41)
[2020-03-18] MEDS: mineral oil/petrolatum ophthal oint EACHEYE SCH ×4 (02:16→20:15)
[2020-03-18 03:01] LABS: BASOPHILS % (AUTO) 0.3 % (0-1); EOSINOPHILS # (AUTO) 0.3 X10'3 (0-0.9); EOSINOPHILS % (AUTO) 3.3 % (0-6); HEMOGLOBIN 7.3 g/dl (14.0-17.9); LYMPHOCYTES # (AUTO) 1.7 X10'3 (1.1-4.8); LYMPHOCYTES % (AUTO) 17.5 % (21-51); MEAN CORPUSCULAR HEMOGLOBIN 29.5 PG (27.0-31.0); MEAN CORPUSCULAR HGB CONC 34.3 g/dL (33.0-36.5); MEAN CORPUSCULAR VOLUME 86.2 FL (78-98); MEAN PLATELET VOLUME 8.1 FL (7.4-10.4); MONOCYTES # (AUTO) 0.9 X10'3 (0-0.9); MONOCYTES % (AUTO) 9.9 % (2-12); NEUTROPHILS # (AUTO) 6.6 X10'3 (1.8-7.7); PLATELET COUNT 194 X10'3 (140-440); RED BLOOD COUNT 2.48 X10'6 (4.70-6.10); RED CELL DISTRIBUTION WIDTH 17.6 % (11.5-14.5); WHITE BLOOD COUNT 9.6 X10'3 (4.5-11.0)
[2020-03-18 03:08] LABS: PARTIAL THROMBOPLASTIN TIME 33 SECONDS (22-32)
[2020-03-18 03:20] LABS: ALANINE AMINOTRANSFERASE 202 U/L (12-78); ALBUMIN 1.4 G/DL (3.4-5.0); ALBUMIN/GLOBULIN RATIO 0.4 (1.1-1.5); ALKALINE PHOSPHATASE 72 IU/L (46-116); ANION GAP 8 (8-16); ASPARTATE AMINO TRANSFERASE 112 U/L (10-37); BILIRUBIN,TOTAL 0.3 MG/DL (0.1-1.0); BLOOD UREA NITROGEN 13 MG/DL (7-18); BUN/CREATININE RATIO 22.4 (5.4-32.0); CHLORIDE 110 MMOL/L (99-107); CREATININE 0.58 MG/DL (0.60-1.10); GLUCOSE 84 MG/DL (70-104); MAGNESIUM 2.3 MG/DL (1.5-2.4); PHOSPHORUS 1.4 MG/DL (2.3-4.5); PREALBUMIN 8.2 MG/DL (19-36); SODIUM 144 MMOL/L (135-145); TOTAL CARBON DIOXIDE 26.4 MMOL/L (24-32); eGFR > 90 ML/MIN
[2020-03-18 03:32] LABS: POTASSIUM 2.9 MMOL/L (3.5-5.1)
[2020-03-18] MEDS: propofol 1000mg/100ml bottle 100 ML IV SCH ×4 (03:44→20:17)
[2020-03-18 03:47] LABS: HEMATOCRIT 21.4 % (42.0-52.0)
[2020-03-18 03:56] LABS: ABG BASE EXCESS -0.9 mmol/L (-2.0-2.0); ABG HCO3 22.9 mmol/L (22.0-26.0); ABG OXYGEN SATURATION 97.6 % (94-97); ABG PCO2 (T) 34.2 mmHg (35.0-48.0); ABG PO2 (T) 99.2 mmHg (75.0-100.0); FCOHb 0.7 % (0.0-3.9); FMetHb 0.3 % (0.0-1.5); FO2Hb 96.6 % (94-97); PATIENT TEMPERATURE 37.1; PEEP 5 cm H2O; RESPIRATORY RATE 12 b/min; TIDAL VOLUME 650 mL; TOTAL HEMOGLOBIN 7.7 G/dl (14.0-18.0)
[2020-03-18] MEDS: potassium Cl 40MEQ/250ML bag 270 ML IV PRN ×2 (04:21→08:31)
--- NOTE | 2020-03-18 06:23 | NUR ---
Problems reprioritized. Patient report given, questions answered & plan of care reviewed with Mike RN and BRAD Mcknight.
--- NOTE | 2020-03-18 06:25 | NUR ---
Patient in room ICU 2042. I have received report from BRAD Brower and had the opportunity to ask questions and assume patient care.
[2020-03-18] MEDS: pantoprazole 40 MG vial IV SCH (07:13)
[2020-03-18 08:31] LABS: HEMATOCRIT 24.5 % (42.0-52.0); HEMOGLOBIN 8.3 g/dl (14.0-17.9); MEAN CORPUSCULAR HEMOGLOBIN 29.2 PG (27.0-31.0); MEAN CORPUSCULAR HGB CONC 33.7 g/dL (33.0-36.5); MEAN CORPUSCULAR VOLUME 86.6 FL (78-98); MEAN PLATELET VOLUME 8.1 FL (7.4-10.4); PLATELET COUNT 220 X10'3 (140-440); RED BLOOD COUNT 2.83 X10'6 (4.70-6.10); RED CELL DISTRIBUTION WIDTH 17.9 % (11.5-14.5)
[2020-03-18] MEDS: normal saline 1000ml 1,000 ML IV SCH ×2 (08:52→20:15)
--- NOTE | 2020-03-18 10:21 | NUR ---
Per Kamla, discontinue central line and replace phosphorus.
[2020-03-18] MEDS ORDERED: sodium phosphate inj. 30 MMOL in dextrose 5%-water 250 ML IV PRN (10:25)
[2020-03-18] MEDS ORDERED: Neutra Phos packet PO PRN (10:25)
[2020-03-18] MEDS ORDERED: heparin 10,000 units/1 ML INJ ONE (11:05)
[2020-03-18] MEDS ORDERED: sevoflurane 250ml liquid IH ONE (11:40)
--- NOTE | 2020-03-18 11:45 | NUR ---
Pt off floor for surgery with Dr. Mortensen.
[2020-03-18] MEDS ORDERED: MIDAZolam 5mg/5ml vial ONE (12:00)
[2020-03-18] MEDS ORDERED: fentaNYL/PF 50MCG/1 ML 2ML syringe ONE ×2 (12:00→12:26)
[2020-03-18] MEDS ORDERED: rocuronium 10mg/ml inj IV ONE ×2 (12:00→12:26)
[2020-03-18] MEDS ORDERED: albumin (Human) 5% 250ml 250 ML IV ONE ×2 (12:01→12:35)
[2020-03-18] MEDS ORDERED: ceFAZolin 1000mg inj ONE ×2 (12:05→12:06)
[2020-03-18] MEDS ORDERED: bacitracin 15gm ointment TP ONE (12:57)
--- NOTE | 2020-03-18 13:30 | NUR ---
Pt arrived back to unit from surgery.
[2020-03-18] MEDS: labetalol 20mg/4ml (5mg/ml) syringe IV PRN (14:37)
--- NOTE | 2020-03-18 18:00 | NUR ---
Patient in room ICU 2042. I have received report and had the opportunity to ask questions and assume patient care. Patient received orally intubated on IV sedation. #8.0 ETT @ 24cm teeth. Secured with anchorfast. Vent settings A/C VC FIO2 30% TV 650 rate 12 +5PEEP. Observed RR 12, TV 755. Oxygen saturation is 97%. Lungs clear. Rhythm is sinus tachycardia HR 107. Pulses palpable throughout, capillary refill brisk to all nail beds. Right lateral thoracic chest tube to 20 CM wall suction, drainage is serous pink tinged. DELFINO sluggish @ 2mm. Pt is on IV sedation RASS -3. Tremors noted when sedation is titrated down or there is a delay. Midline abdominal dressing is dry with old drainage. Left arm with splint & jevon wrap. Abdomen is soft BS quiet. NGT right nares with trickel feeds Vital AF @ 10ml/hr residual is 50 ml. HOB is elevated. Bed brakes on/low position, side rails upx4 for safety. Pt is in direct view, rounds are frequent & bilateral soft wrist restraints are secure.
--- NOTE | 2020-03-18 18:00 | NUR ---
Problems reprioritized. Patient report given, questions answered & plan of care reviewed with BRAD Fitch.
[2020-03-18] MEDS: insulin glargine (Lantus) pen - multi-dose SQ SCH (20:18)
[2020-03-19] VITALS (24 sets, daily range): BP systolic 111–149; BP diastolic 68–102
[2020-03-19] MEDS: propofol 1000mg/100ml bottle 100 ML IV SCH ×3 (01:04→16:15)
[2020-03-19] MEDS: FENTANYL-0.9 % NACL/PF 100 ML IV PRN ×4 (01:08→19:10)
[2020-03-19 01:53] LABS: BASOPHILS % (AUTO) 0.2 % (0-1); EOSINOPHILS # (AUTO) 0.1 X10'3 (0-0.9); HEMOGLOBIN 8.4 g/dl (14.0-17.9); LYMPHOCYTES # (AUTO) 1.2 X10'3 (1.1-4.8); LYMPHOCYTES % (AUTO) 12.1 % (21-51); MEAN CORPUSCULAR HEMOGLOBIN 29.2 PG (27.0-31.0); MEAN CORPUSCULAR HGB CONC 33.7 g/dL (33.0-36.5); MEAN CORPUSCULAR VOLUME 86.6 FL (78-98); MEAN PLATELET VOLUME 7.3 FL (7.4-10.4); MONOCYTES # (AUTO) 1.1 X10'3 (0-0.9); NEUTROPHILS # (AUTO) 7.5 X10'3 (1.8-7.7); NEUTROPHILS % (AUTO) 75.7 % (42-75); PLATELET COUNT 288 X10'3 (140-440); RED BLOOD COUNT 2.89 X10'6 (4.70-6.10); RED CELL DISTRIBUTION WIDTH 17.5 % (11.5-14.5); WHITE BLOOD COUNT 9.9 X10'3 (4.5-11.0)
[2020-03-19 02:04] LABS: PARTIAL THROMBOPLASTIN TIME 31 SECONDS (22-32)
[2020-03-19 02:15] LABS: ALANINE AMINOTRANSFERASE 137 U/L (12-78); ALBUMIN 1.6 G/DL (3.4-5.0); ALBUMIN/GLOBULIN RATIO 0.5 (1.1-1.5); ALKALINE PHOSPHATASE 80 IU/L (46-116); ANION GAP 8 (8-16); ASPARTATE AMINO TRANSFERASE 88 U/L (10-37); BILIRUBIN,TOTAL 0.4 MG/DL (0.1-1.0); BLOOD UREA NITROGEN 12 MG/DL (7-18); BUN/CREATININE RATIO 20.7 (5.4-32.0); CALCIUM 6.7 MG/DL (8.5-10.1); CHLORIDE 111 MMOL/L (99-107); CREATININE 0.58 MG/DL (0.60-1.10); GLUCOSE 98 MG/DL (70-104); MAGNESIUM 2.4 MG/DL (1.5-2.4); SODIUM 145 MMOL/L (135-145); TOTAL CARBON DIOXIDE 26.1 MMOL/L (24-32); TOTAL PROTEIN 5.1 G/DL (6.4-8.2); eGFR > 90 ML/MIN
[2020-03-19] MEDS: mineral oil/petrolatum ophthal oint EACHEYE SCH ×4 (02:33→19:12)
[2020-03-19] MEDS: potassium Cl 40MEQ/250ML bag 270 ML IV PRN ×2 (03:22→05:37)
[2020-03-19 04:36] LABS: ABG BASE EXCESS -2.5 mmol/L (-2.0-2.0); ABG OXYGEN SATURATION 96.9 % (94-97); ABG PCO2 (T) 32.9 mmHg (35.0-48.0); ABG PO2 (T) 99.9 mmHg (75.0-100.0); ALLEN'S TEST POSITIVE; FCOHb 0.3 % (0.0-3.9); FMetHb 0.1 % (0.0-1.5); FO2Hb 96.5 % (94-97); PATIENT TEMPERATURE 38.3; PEEP 5 cm H2O; RESPIRATORY RATE 12 b/min; TIDAL VOLUME 650 mL; TOTAL HEMOGLOBIN 9.2 G/dl (14.0-18.0)
[2020-03-19] MEDS: sodium phosphate inj. 15 MMOL in dextrose 5%-water 250 ML IV PRN (04:51)
--- NOTE | 2020-03-19 06:28 | NUR ---
Problems reprioritized. Patient report given, questions answered & plan of care reviewed with Paolo SALINAS.
[2020-03-19] MEDS: normal saline 1000ml 1,000 ML IV SCH ×2 (07:52→19:12)
[2020-03-19] MEDS: midazolam 100mg in NS 100ml 100 ML IV PRN (07:56)
[2020-03-19] MEDS: pantoprazole 40 MG vial IV SCH (07:57)
[2020-03-19] MEDS: labetalol 20mg/4ml (5mg/ml) syringe IV PRN (09:52)
--- NOTE | 2020-03-19 10:49 | NUR ---
Gustabo Consult: Gustabo Hagan w/ abdomen surgical wounds. Pt s/p return to OR yesterday for sponges removal w/ peritoneum and GI intact per MD note. Currently tolerating trickle TF at 10ml/hr between OR visits this admit and pending extubation today per MD at rounds. No BM yet this admit though multiple visits to OR and minimal nutrition past 5 days. Phos 2.0 today up from 1.4 yesterday receiving electrolyte replacements per protocol. Will monitor for PO diet advancement as medically indicated s/p extubation as well as bowel care needs. Would benefit from Segun ONS given wound healing needs once PO. Will continue to monitor. Recommend: 1. Trickle tube feeding per surgeon at 10 ml/hr. Recommend Vital AF. 2. IF to advance tube feeding during intubation following surgery, recommend vital AF at 75 ml/hr. 3. when extubated advance diet as medically indicated to regular 4. bowel care per rx; consider opioid antagonist if MD agreeable receiving fentanyl and midazolam 5. daily wts Addendum: 03/19/20 at [address] Amended: Links added.
[2020-03-19] MEDS ORDERED: Neutra Phos packet NG PRN (11:00)
[2020-03-19] MEDS ORDERED: dextrose ORAL solution 15 GM/59 ML bottle NG PRN ×2 (11:00)
[2020-03-19] MEDS ORDERED: magnesium hydroxide 30ml (MOM) UD suspension NG PRN (11:00)
[2020-03-19] MEDS ORDERED: acetaminophen 325mg/10.15ml oral unit dose solution NG PRN (11:00)
[2020-03-19] MEDS: ipratropium/albuterol 3ml nebule NEB PRN (11:03)
[2020-03-19] MEDS: DEXMEDETOMIDINE 400MCG in NORMAL SALINE 100ml IV SCH ×3 (12:25→23:55)
[2020-03-19 15:57] LABS: POTASSIUM 3.6 MMOL/L (3.5-5.1)
[2020-03-19 17:10] LABS: PHOSPHORUS 2.8 MG/DL (2.3-4.5)
--- NOTE | 2020-03-19 18:15 | NUR ---
Patient in room ICU 2042. I have received report from Paolo SALINAS and had the opportunity to ask questions and assume patient care. Pt remains orally intubated #8.0 ETT @24 cm teeth. Vent settings AC VC FIO2 30% TV 650 rate 12 +5 PEEP. Observed TV 780 RR 16. Oxygen saturation is 100%. Lungs clear, diminished in bases. Rhythm is sinus tachycardia HR103. Pulses are palpable throughout, brisk capillary refill to all nail beds. Wakeful, eyes opened pt is able to track and follow simple commands close eyes blink & open to command. Moves all extremities.Pt oriented and instructed regarding ETT & inability to speak. IV sedation fentanyl/ propofol & precedex infusing, Addendum: 03/19/20 at 1844 by Little Roth RN IV site is right IJ central line. Chest tube right lateral thoracic is secure. CT to 20cm wall suction, drainage is serous/ pink. Right nares [place] sump with trickle tube feedings Vital AF @ 10ml/hr.m Residual is 40ml. HOB is elevated 30 degrees. Abdominal dressing is dry & intact with old drainage. BS are hypoactive. Tello cath drains light tea colored urine. Afebrile oral temp 98. Safety precautions observed bed brakes on/low position. Side rails up x4 for safety. Bilateral soft wrist restraints secure. No distress at shift change.
--- NOTE | 2020-03-19 18:36 | NUR ---
bedside SBAR report given to night Rn , EMAR reviewed, questions answered.
[2020-03-19] MEDS: insulin glargine (Lantus) pen - multi-dose SQ SCH (21:00)
[2020-03-20] VITALS (24 sets, daily range): BP systolic 117–152; BP diastolic 71–110
[2020-03-20] MEDS: FENTANYL-0.9 % NACL/PF 100 ML IV PRN ×2 (00:12→05:23)
[2020-03-20] MEDS: mineral oil/petrolatum ophthal oint EACHEYE SCH ×4 (02:00→20:00)
[2020-03-20 03:09] LABS: BASOPHILS % (AUTO) 0.2 % (0-1); EOSINOPHILS # (AUTO) 0.2 X10'3 (0-0.9); EOSINOPHILS % (AUTO) 2.5 % (0-6); HEMATOCRIT 23.7 % (42.0-52.0); LYMPHOCYTES # (AUTO) 1.8 X10'3 (1.1-4.8); LYMPHOCYTES % (AUTO) 17.7 % (21-51); MEAN CORPUSCULAR HEMOGLOBIN 29.1 PG (27.0-31.0); MEAN CORPUSCULAR HGB CONC 33.7 g/dL (33.0-36.5); MEAN CORPUSCULAR VOLUME 86.2 FL (78-98); MEAN PLATELET VOLUME 7.1 FL (7.4-10.4); MONOCYTES # (AUTO) 1.3 X10'3 (0-0.9); MONOCYTES % (AUTO) 12.7 % (2-12); NEUTROPHILS # (AUTO) 6.7 X10'3 (1.8-7.7); NEUTROPHILS % (AUTO) 66.9 % (42-75); PLATELET COUNT 321 X10'3 (140-440); RED BLOOD COUNT 2.76 X10'6 (4.70-6.10); RED CELL DISTRIBUTION WIDTH 17.7 % (11.5-14.5); WHITE BLOOD COUNT 10.1 X10'3 (4.5-11.0)
[2020-03-20 03:24] LABS: PARTIAL THROMBOPLASTIN TIME 31 SECONDS (22-32)
[2020-03-20 03:27] LABS: ANION GAP 3 (8-16); BLOOD UREA NITROGEN 16 MG/DL (7-18); CHLORIDE 113 MMOL/L (99-107); CREATININE 0.52 MG/DL (0.60-1.10); GLUCOSE 116 MG/DL (70-104); POTASSIUM 3.4 MMOL/L (3.5-5.1); SODIUM 146 MMOL/L (135-145); TOTAL CARBON DIOXIDE 30.2 MMOL/L (24-32)
[2020-03-20 03:28] LABS: ALANINE AMINOTRANSFERASE 119 U/L (12-78); ALBUMIN 1.5 G/DL (3.4-5.0); ALBUMIN/GLOBULIN RATIO 0.4 (1.1-1.5); ALKALINE PHOSPHATASE 110 IU/L (46-116); ASPARTATE AMINO TRANSFERASE 100 U/L (10-37); BILIRUBIN,TOTAL 0.4 MG/DL (0.1-1.0); BUN/CREATININE RATIO 30.8 (5.4-32.0); CALCIUM 7.4 MG/DL (8.5-10.1); MAGNESIUM 2.5 MG/DL (1.5-2.4); PHOSPHORUS 2.1 MG/DL (2.3-4.5); TOTAL PROTEIN 5.2 G/DL (6.4-8.2); eGFR > 90 ML/MIN
[2020-03-20 04:36] LABS: ABG HCO3 23.3 mmol/L (22.0-26.0); ABG OXYGEN SATURATION 97.8 % (94-97); ABG PCO2 (T) 38.8 mmHg (35.0-48.0); ABG PO2 (T) 107.6 mmHg (75.0-100.0); ALLEN'S TEST POSITIVE; FCOHb 0.8 % (0.0-3.9); FMetHb 0.1 % (0.0-1.5); FO2Hb 96.9 % (94-97); PATIENT TEMPERATURE 38.4; PEEP 5 cm H2O; RESPIRATORY RATE 12 b/min; TIDAL VOLUME 650 mL; TOTAL HEMOGLOBIN 8.2 G/dl (14.0-18.0)
[2020-03-20] MEDS: DEXMEDETOMIDINE 400MCG in NORMAL SALINE 100ml IV SCH ×6 (04:53→21:41)
[2020-03-20] MEDS: potassium Cl 40MEQ/250ML bag 270 ML IV PRN ×2 (05:25→17:25)
[2020-03-20] MEDS: sodium phosphate inj. 15 MMOL in dextrose 5%-water 250 ML IV PRN (05:26)
[2020-03-20] MEDS: propofol 1000mg/100ml bottle 100 ML IV SCH (05:51)
[2020-03-20] MEDS: acetaminophen 650mg rectal suppository RC PRN (05:52)
[2020-03-20] MEDS: normal saline 1000ml 1,000 ML IV SCH ×3 (05:53→20:20)
--- NOTE | 2020-03-20 06:28 | NUR ---
Problems reprioritized. Patient report given, questions answered & plan of care reviewed with Paolo SALINAS.
[2020-03-20] MEDS: pantoprazole 40 MG vial IV SCH (08:51)
[2020-03-20] MEDS: labetalol 20mg/4ml (5mg/ml) syringe IV PRN (10:36)
--- NOTE | 2020-03-20 11:57 | NUR ---
abdominal dressing change done per surgeon orders. surgical bulmaro look clean, dry, no drainage, or signs of infection.
[2020-03-20] MEDS ORDERED: naloxone 0.4 mg/ml inj IV PRN (13:15)
[2020-03-20] MEDS: ipratropium/albuterol 3ml nebule NEB PRN (13:15)
[2020-03-20] MEDS ORDERED: CADD PCA waste documentation MC PRN (13:15)
[2020-03-20] MEDS: HYDROmorphone/NS 1 mg/ml CADD 50 ML IV SCH ×6 (13:55→23:00)
[2020-03-20 15:19] LABS: PHOSPHORUS 2.4 MG/DL (2.3-4.5); POTASSIUM 3.4 MMOL/L (3.5-5.1)
--- NOTE | 2020-03-20 18:23 | NUR ---
SBAR report given at beside Kathy SALINAS
--- NOTE | 2020-03-20 18:45 | NUR ---
Patient in room ICU 2042. I have received report from Paolo SALINAS and had the opportunity to ask questions and assume patient care.
--- NOTE | 2020-03-20 18:48 | NUR ---
Rounded with Dr. Hughes, Dr. Estrada, and Dr. Conti. EMAR reviewed. patient condition and assessment reviewed. Orders in system.
[2020-03-20] MEDS: insulin glargine (Lantus) pen - multi-dose SQ SCH (21:00)
[2020-03-21] VITALS (23 sets, daily range): BP systolic 120–174; BP diastolic 83–98
[2020-03-21] MEDS: DEXMEDETOMIDINE 400MCG in NORMAL SALINE 100ml IV SCH ×3 (00:44→06:23)
[2020-03-21] MEDS: HYDROmorphone/NS 1 mg/ml CADD 50 ML IV SCH ×11 (01:00→23:00)
[2020-03-21] MEDS: mineral oil/petrolatum ophthal oint EACHEYE SCH ×4 (02:00→20:00)
--- NOTE | 2020-03-21 03:50 | NUR ---
There was a mistake on the lab reading. Lab draw was done at 0300. Lab result came back at 0330 with a critical of 6.7 for the hgb and 18.1 for the hct. the lab asked for a redraw. A redraw was done and showed that these levels have normalized to hbg 8.8, and hct 25.8.
[2020-03-21 04:27] LABS: PARTIAL THROMBOPLASTIN TIME 26 SECONDS (22-32)
[2020-03-21 04:28] LABS: BASOPHILS # (AUTO) 0.1 X10'3 (0-0.2); BASOPHILS % (AUTO) 0.6 % (0-1); EOSINOPHILS # (AUTO) 0.5 X10'3 (0-0.9); EOSINOPHILS % (AUTO) 4.1 % (0-6); HEMATOCRIT 25.8 % (42.0-52.0); HEMOGLOBIN 8.8 g/dl (14.0-17.9); LYMPHOCYTES # (AUTO) 2.2 X10'3 (1.1-4.8); LYMPHOCYTES % (AUTO) 18.2 % (21-51); MEAN CORPUSCULAR HEMOGLOBIN 29.3 PG (27.0-31.0); MEAN CORPUSCULAR HGB CONC 33.9 g/dL (33.0-36.5); MEAN CORPUSCULAR VOLUME 86.4 FL (78-98); MEAN PLATELET VOLUME 7.2 FL (7.4-10.4); MONOCYTES # (AUTO) 1.3 X10'3 (0-0.9); MONOCYTES % (AUTO) 10.7 % (2-12); NEUTROPHILS # (AUTO) 8.1 X10'3 (1.8-7.7); NEUTROPHILS % (AUTO) 66.4 % (42-75); PLATELET COUNT 433 X10'3 (140-440); RED BLOOD COUNT 2.99 X10'6 (4.70-6.10); RED CELL DISTRIBUTION WIDTH 17.3 % (11.5-14.5); WHITE BLOOD COUNT 12.1 X10'3 (4.5-11.0)
[2020-03-21 04:30] LABS: ALANINE AMINOTRANSFERASE 112 U/L (12-78); ALBUMIN 1.6 G/DL (3.4-5.0); ALBUMIN/GLOBULIN RATIO 0.4 (1.1-1.5); ALKALINE PHOSPHATASE 125 IU/L (46-116); ANION GAP 7 (8-16); ASPARTATE AMINO TRANSFERASE 105 U/L (10-37); BILIRUBIN,TOTAL 0.4 MG/DL (0.1-1.0); BLOOD UREA NITROGEN 17 MG/DL (7-18); BUN/CREATININE RATIO 32.7 (5.4-32.0); CALCIUM 7.5 MG/DL (8.5-10.1); CHLORIDE 110 MMOL/L (99-107); CREATININE 0.52 MG/DL (0.60-1.10); GLUCOSE 108 MG/DL (70-104); MAGNESIUM 2.1 MG/DL (1.5-2.4); PHOSPHORUS 2.7 MG/DL (2.3-4.5); POTASSIUM 3.8 MMOL/L (3.5-5.1); PREALBUMIN 10.5 MG/DL (19-36); SODIUM 143 MMOL/L (135-145); TOTAL CARBON DIOXIDE 25.9 MMOL/L (24-32); TOTAL PROTEIN 5.4 G/DL (6.4-8.2); eGFR > 90 ML/MIN
--- NOTE | 2020-03-21 04:40 | NUR ---
bladder scanned patient d/t no urination for over 6 hours, and patient was feeling fullness. There was 551 with bladder scan. After straigh cath, 500 cc was removed. Pt denied any s.s of complications .
--- NOTE | 2020-03-21 05:37 | NUR ---
for patient hourly there was urine output, however this was not the case. I cannot undo the inputs for the hourly urine output. Patient put of 500 cc with the straight cath at 0500 on 03/21. Addendum: 03/21/20 at 0539 by Kathy Chen RN disregard this
--- NOTE | 2020-03-21 05:38 | NUR ---
patient had three large bowel movements within 20 minutes. vss
[2020-03-21] MEDS: normal saline 1000ml 1,000 ML IV SCH ×2 (06:20→16:20)
--- NOTE | 2020-03-21 06:25 | NUR ---
Problems reprioritized. Patient report given, questions answered & plan of care reviewed with Sarah SALINAS.
--- NOTE | 2020-03-21 06:26 | NUR ---
Patient in room ICU 2042. I have received report from BRAD DRIVER and had the opportunity to ask questions and assume patient care.
--- NOTE | 2020-03-21 07:30 | NUR ---
Patient in room ICU 2042. I have received report from BRAD URBINA and had the opportunity to ask questions and assume patient care.
[2020-03-21] MEDS: pantoprazole 40 MG vial IV SCH (08:20)
[2020-03-21] MEDS: FENTANYL-0.9 % NACL/PF 100 ML IV PRN (09:29)
[2020-03-21] MEDS: acetaminophen 325mg/10.15ml oral unit dose solution NG PRN (17:53)
--- NOTE | 2020-03-21 18:18 | NUR ---
Problems reprioritized. Patient report given, questions answered & plan of care reviewed with .BRAD CRUZ
[2020-03-21] MEDS: insulin glargine (Lantus) pen - multi-dose SQ SCH (21:00)
[2020-03-22] VITALS (16 sets, daily range): BP systolic 136–160; BP diastolic 71–113
[2020-03-22] MEDS: normal saline 1000ml 1,000 ML IV SCH (00:21)
[2020-03-22] MEDS: HYDROmorphone/NS 1 mg/ml CADD 50 ML IV SCH ×7 (01:00→13:00)
[2020-03-22] MEDS: mineral oil/petrolatum ophthal oint EACHEYE SCH ×2 (02:00→08:00)
[2020-03-22] MEDS: labetalol 20mg/4ml (5mg/ml) syringe IV PRN (03:06)
[2020-03-22 03:41] LABS: BASOPHILS % (AUTO) 0.3 % (0-1); EOSINOPHILS # (AUTO) 0.2 X10'3 (0-0.9); EOSINOPHILS % (AUTO) 1.2 % (0-6); HEMOGLOBIN 8.7 g/dl (14.0-17.9); LYMPHOCYTES # (AUTO) 2.3 X10'3 (1.1-4.8); LYMPHOCYTES % (AUTO) 16.5 % (21-51); MEAN CORPUSCULAR HEMOGLOBIN 28.6 PG (27.0-31.0); MEAN CORPUSCULAR HGB CONC 33.3 g/dL (33.0-36.5); MEAN CORPUSCULAR VOLUME 85.8 FL (78-98); MEAN PLATELET VOLUME 7.1 FL (7.4-10.4); MONOCYTES # (AUTO) 1.4 X10'3 (0-0.9); MONOCYTES % (AUTO) 9.9 % (2-12); NEUTROPHILS # (AUTO) 10.2 X10'3 (1.8-7.7); NEUTROPHILS % (AUTO) 72.1 % (42-75); PLATELET COUNT 503 X10'3 (140-440); RED BLOOD COUNT 3.04 X10'6 (4.70-6.10); RED CELL DISTRIBUTION WIDTH 17.2 % (11.5-14.5); WHITE BLOOD COUNT 14.2 X10'3 (4.5-11.0)
[2020-03-22 03:52] LABS: PARTIAL THROMBOPLASTIN TIME 31 SECONDS (22-32)
[2020-03-22 04:47] LABS: ALANINE AMINOTRANSFERASE 106 U/L (12-78); ALBUMIN 1.6 G/DL (3.4-5.0); ALBUMIN/GLOBULIN RATIO 0.4 (1.1-1.5); ALKALINE PHOSPHATASE 103 IU/L (46-116); ANION GAP 10 (8-16); ASPARTATE AMINO TRANSFERASE 106 U/L (10-37); BILIRUBIN,TOTAL 0.4 MG/DL (0.1-1.0); BLOOD UREA NITROGEN 14 MG/DL (7-18); BUN/CREATININE RATIO 26.9 (5.4-32.0); CALCIUM 7.4 MG/DL (8.5-10.1); CHLORIDE 108 MMOL/L (99-107); CREATININE 0.52 MG/DL (0.60-1.10); GLUCOSE 87 MG/DL (70-104); MAGNESIUM 1.9 MG/DL (1.5-2.4); PHOSPHORUS 3.2 MG/DL (2.3-4.5); POTASSIUM 3.4 MMOL/L (3.5-5.1); SODIUM 143 MMOL/L (135-145); TOTAL CARBON DIOXIDE 25.4 MMOL/L (24-32); TOTAL PROTEIN 5.3 G/DL (6.4-8.2); eGFR > 90 ML/MIN
--- NOTE | 2020-03-22 06:00 | NUR ---
RECEIVED REPORT FROM URIEL SALINAS
[2020-03-22] MEDS: pantoprazole 40 MG vial IV SCH (09:40)
[2020-03-22] MEDS: ondansetron/PF 4mg/2ml inj IV PRN ×2 (09:40→20:01)
--- NOTE | 2020-03-22 10:32 | NUR ---
Reassessment: Pt extubated advanced to regular diet PO 100% first PO meal last night. SONJA recommends Segun shakes BIDLD w/ meals for wound healing needs; notified. LB 03/21. Will continue to monitor for additional protein needs post-op. Recommend: 1. continue regular diet 2. Segun shake BIDLD for wound healing 3. routine bowel care 4. weekly wts Addendum: 03/22/20 at [address] Amended: Links added.
[2020-03-22] MEDS ORDERED: JUVEN Shake w/Arg/Glut/Ca2+Bmb (Juven 19.3gm) pkt 240ml PO SCH (12:30)
--- NOTE | 2020-03-22 14:14 | NUR ---
RECEIVED REPORT FROM ICU NURSE. COORDINATING TRANSFER.
[2020-03-22] MEDS: potassium Cl 40MEQ/250ML bag 270 ML IV PRN (14:38)
--- NOTE | 2020-03-22 15:15 | NUR ---
PATIENT CAME TO FLOOR. HE DID NOT WANT SKIN CHECK. HE STARTED SPITTING. PUT HIM FROM THE CIAR TO BED WITH TWO TECHS AND A SIT TI STAND. HOOKED UP TUBING, AND CHANGED HIM
--- NOTE | 2020-03-22 15:17 | NUR ---
Between 1300 to 1445 patient chest tube out 400cc serosanguinous blood. During this time patient was working with PT and transferred from the bed to a chair. VSS. Dr. Conti aware. No new orders. Pt transferred at 1505 report given to BRAD Burch on surgical floor. Personal belongings with patient.
--- NOTE | 2020-03-22 17:56 | NUR ---
NOT ABLE TO GIVE METHADONE, NOT ENOUGH IN OMNICELL
[2020-03-22] MEDS: CADD PCA waste documentation MC PRN ×2 (18:26→18:35)
--- NOTE | 2020-03-22 18:39 | NUR ---
Problems reprioritized. Patient report given, questions answered & plan of care reviewed with PRUDENCE RN.
[2020-03-22] MEDS: methadone 10mg tablet PO SCH (18:58)
[2020-03-22] MEDS: fentaNYL 25MCG/hour patch.TD72 TD SCH (19:02)
--- NOTE | 2020-03-22 19:31 | NUR ---
Patient in room [facility] 344. I have received report from INGRIS SALINAS and had the opportunity to ask questions and assume patient care.
[2020-03-22] MEDS: insulin glargine (Lantus) pen - multi-dose SQ SCH (21:00)
[2020-03-23] VITALS: BP 158/89
[2020-03-23 06:28] LABS: BASOPHILS % (AUTO) 0.2 % (0-1); EOSINOPHILS # (AUTO) 0.1 X10'3 (0-0.9); EOSINOPHILS % (AUTO) 0.3 % (0-6); HEMATOCRIT 26.2 % (42.0-52.0); LYMPHOCYTES # (AUTO) 2.4 X10'3 (1.1-4.8); LYMPHOCYTES % (AUTO) 14.2 % (21-51); MEAN CORPUSCULAR HEMOGLOBIN 29.1 PG (27.0-31.0); MEAN CORPUSCULAR HGB CONC 34.3 g/dL (33.0-36.5); MEAN CORPUSCULAR VOLUME 84.9 FL (78-98); MONOCYTES # (AUTO) 1.4 X10'3 (0-0.9); MONOCYTES % (AUTO) 8.2 % (2-12); NEUTROPHILS # (AUTO) 13.2 X10'3 (1.8-7.7); NEUTROPHILS % (AUTO) 77.1 % (42-75); PLATELET COUNT 593 X10'3 (140-440); RED BLOOD COUNT 3.09 X10'6 (4.70-6.10); RED CELL DISTRIBUTION WIDTH 17.1 % (11.5-14.5); WHITE BLOOD COUNT 17.2 X10'3 (4.5-11.0)
[2020-03-23 06:36] LABS: PARTIAL THROMBOPLASTIN TIME 34 SECONDS (22-32)
--- NOTE | 2020-03-23 06:37 | NUR ---
Problems reprioritized. Patient report given, questions answered & plan of care reviewed with DONOVAN SALINAS.
[2020-03-23 06:48] LABS: ALANINE AMINOTRANSFERASE 102 U/L (12-78); ALBUMIN 1.7 G/DL (3.4-5.0); ALBUMIN/GLOBULIN RATIO 0.5 (1.1-1.5); ALKALINE PHOSPHATASE 86 IU/L (46-116); ANION GAP 9 (8-16); ASPARTATE AMINO TRANSFERASE 89 U/L (10-37); BILIRUBIN,TOTAL 0.4 MG/DL (0.1-1.0); BLOOD UREA NITROGEN 18 MG/DL (7-18); BUN/CREATININE RATIO 32.1 (5.4-32.0); CALCIUM 7.2 MG/DL (8.5-10.1); CHLORIDE 105 MMOL/L (99-107); CREATININE 0.56 MG/DL (0.60-1.10); GLUCOSE 90 MG/DL (70-104); PHOSPHORUS 3.3 MG/DL (2.3-4.5); POTASSIUM 3.1 MMOL/L (3.5-5.1); SODIUM 140 MMOL/L (135-145); TOTAL CARBON DIOXIDE 26.4 MMOL/L (24-32); TOTAL PROTEIN 5.1 G/DL (6.4-8.2); TRIGLYCERIDES 160 MG/DL (20-135); eGFR > 90 ML/MIN
[2020-03-23 08:00] VITALS: BP 146/81
--- NOTE | 2020-03-23 10:01 | NUR ---
Per Young Merchant, orders were received from that its "OK for pt to use FA support for walking, and may use hand for balancing".
[2020-03-23] MEDS: methadone 10mg tablet PO SCH (10:02)
[2020-03-23] MEDS: pantoprazole 40 MG vial IV SCH (10:03)
[2020-03-23 11:30] VITALS: BP 122/82
[2020-03-23] MEDS ORDERED: potassium Cl 20 mEq SR tablet PO PRN (11:50)
[2020-03-23] MEDS: potassium Cl 20 mEq SR tablet PO PRN ×2 (13:24→19:41)
--- NOTE | 2020-03-23 16:14 | NUR ---
Orders to not remove L arm bandage by Darryl, however pt. decided to remove his bandage himself. On-call orthopedic surgeon called. Spoke to Olayinka. He said ok to redress wound and to just put on what RN thought was on there before.
[2020-03-23 18:00] VITALS: BP 126/72
--- NOTE | 2020-03-23 18:25 | NUR ---
Gave report to Prudence BRAD.
--- NOTE | 2020-03-23 18:59 | NUR ---
Patient in room [facility]MANI 344. I have received report from DONOVAN SALINAS and had the opportunity to ask questions and assume patient care.
[2020-03-23] MEDS: acetaminophen 325mg/10.15ml oral unit dose solution NG PRN (19:41)
[2020-03-23] MEDS: enoxaparin 40mg/0.4ml syringe SUBCUT SCH (19:42)
[2020-03-23] MEDS: insulin glargine (Lantus) pen - multi-dose SQ SCH (21:00)
[2020-03-24] VITALS: BP 115/64
[2020-03-24] MEDS: LORazepam 2 mg/ml vial IV PRN ×4 (00:43→20:24)
[2020-03-24] MEDS: acetaminophen 325mg/10.15ml oral unit dose solution NG PRN (02:03)
--- NOTE | 2020-03-24 05:41 | NUR ---
Patient picking on his left hand dressing and it was reinforced.
[2020-03-24 06:26] LABS: BASOPHILS # (AUTO) 0.1 X10'3 (0-0.2); BASOPHILS % (AUTO) 0.4 % (0-1); EOSINOPHILS # (AUTO) 0.4 X10'3 (0-0.9); EOSINOPHILS % (AUTO) 2.5 % (0-6); HEMATOCRIT 25.5 % (42.0-52.0); HEMOGLOBIN 8.5 g/dl (14.0-17.9); LYMPHOCYTES # (AUTO) 2.8 X10'3 (1.1-4.8); LYMPHOCYTES % (AUTO) 18.4 % (21-51); MEAN CORPUSCULAR HEMOGLOBIN 28.5 PG (27.0-31.0); MEAN CORPUSCULAR HGB CONC 33.2 g/dL (33.0-36.5); MEAN CORPUSCULAR VOLUME 85.8 FL (78-98); MEAN PLATELET VOLUME 7.3 FL (7.4-10.4); MONOCYTES # (AUTO) 1.2 X10'3 (0-0.9); MONOCYTES % (AUTO) 7.8 % (2-12); NEUTROPHILS # (AUTO) 10.6 X10'3 (1.8-7.7); NEUTROPHILS % (AUTO) 70.9 % (42-75); PLATELET COUNT 551 X10'3 (140-440); RED BLOOD COUNT 2.97 X10'6 (4.70-6.10)
[2020-03-24 06:27] LABS: PARTIAL THROMBOPLASTIN TIME 31 SECONDS (22-32)
--- NOTE | 2020-03-24 06:29 | NUR ---
Problems reprioritized. Patient report given, questions answered & plan of care reviewed with DONOVAN SALINAS.
[2020-03-24 06:45] LABS: ALANINE AMINOTRANSFERASE 100 U/L (12-78); ALBUMIN 1.8 G/DL (3.4-5.0); ALBUMIN/GLOBULIN RATIO 0.6 (1.1-1.5); ALKALINE PHOSPHATASE 79 IU/L (46-116); ANION GAP 4 (8-16); ASPARTATE AMINO TRANSFERASE 66 U/L (10-37); BILIRUBIN,TOTAL 0.4 MG/DL (0.1-1.0); BLOOD UREA NITROGEN 14 MG/DL (7-18); BUN/CREATININE RATIO 20.6 (5.4-32.0); CALCIUM 7.3 MG/DL (8.5-10.1); CHLORIDE 106 MMOL/L (99-107); CREATININE 0.68 MG/DL (0.60-1.10); GLUCOSE 102 MG/DL (70-104); MAGNESIUM 1.9 MG/DL (1.5-2.4); PHOSPHORUS 2.9 MG/DL (2.3-4.5); POTASSIUM 3.2 MMOL/L (3.5-5.1); SODIUM 140 MMOL/L (135-145); TOTAL CARBON DIOXIDE 29.6 MMOL/L (24-32); eGFR > 90 ML/MIN
[2020-03-24 07:00] VITALS: BP 138/75
[2020-03-24] MEDS: methadone 10mg tablet PO SCH (08:55)
[2020-03-24] MEDS: pantoprazole 40 MG vial IV SCH (08:55)
[2020-03-24] MEDS: potassium Cl 20 mEq SR tablet PO PRN ×3 (08:55→20:09)
[2020-03-24] MEDS: pantoprazole 40mg Tablet.DR PO SCH (09:02)
[2020-03-24 11:30] VITALS: BP 147/96
[2020-03-24] MEDS ORDERED: ondansetron 4mg rapidly disintigrating tab PO PRN (12:45)
--- NOTE | 2020-03-24 14:54 | NUR ---
Wound Consult: Pt wound healing needs addressed in prior RD note; RN reports pt has segun jeterie ordered but has not received. Segun ONS yet to be verified by MD so unable to send; RD provided RN w/ current ONS recs. See prior RD note for full assessment. Addendum: 03/24/20 at [address] Amended: Links added.
[2020-03-24] MEDS: JUVEN Shake w/Arg/Glut/Ca2+Bmb (Juven 19.3gm) pkt 240ml PO SCH (17:30)
[2020-03-24 18:00] VITALS: BP 137/87
--- NOTE | 2020-03-24 18:45 | NUR ---
Gave report to Franca Chawla
--- NOTE | 2020-03-24 18:47 | NUR ---
Patient in room [facility] 344. I have received report from BRAD Jones and had the opportunity to ask questions and assume patient care.
[2020-03-24] MEDS: enoxaparin 40mg/0.4ml syringe SUBCUT SCH (20:10)
--- NOTE | 2020-03-24 20:10 | NUR ---
Chest tube collection chamber was not fluctuating with coughing. No leaks detected, no bubbles in air chamber. Changed collection device. Still no fluctuation however, the chest tube continues to drain. Followed suction tube from wall to chamber, followed chest tube from chamber to chest. No defects noted. Patient reports no new discomfort or difficulty breathing.
[2020-03-24] MEDS: insulin glargine (Lantus) pen - multi-dose SQ SCH (21:00)
[2020-03-25] VITALS: BP 137/87
[2020-03-25 05:21] LABS: BASOPHILS # (AUTO) 0.1 X10'3 (0-0.2); BASOPHILS % (AUTO) 0.5 % (0-1); EOSINOPHILS # (AUTO) 0.7 X10'3 (0-0.9); HEMATOCRIT 27.6 % (42.0-52.0); HEMOGLOBIN 9.1 g/dl (14.0-17.9); LYMPHOCYTES % (AUTO) 20.9 % (21-51); MONOCYTES # (AUTO) 1.2 X10'3 (0-0.9)
[2020-03-25 05:22] LABS: EOSINOPHILS % (AUTO) 4.4 % (0-6); LYMPHOCYTES # (AUTO) 3.3 X10'3 (1.1-4.8); MEAN CORPUSCULAR HEMOGLOBIN 28.6 PG (27.0-31.0); MEAN CORPUSCULAR HGB CONC 33.1 g/dL (33.0-36.5); MEAN CORPUSCULAR VOLUME 86.4 FL (78-98); MEAN PLATELET VOLUME 7.2 FL (7.4-10.4); MONOCYTES % (AUTO) 7.9 % (2-12); NEUTROPHILS # (AUTO) 10.4 X10'3 (1.8-7.7); NEUTROPHILS % (AUTO) 66.3 % (42-75); PLATELET COUNT 619 X10'3 (140-440); RED CELL DISTRIBUTION WIDTH 17.1 % (11.5-14.5); WHITE BLOOD COUNT 15.6 X10'3 (4.5-11.0)
[2020-03-25 05:26] LABS: PARTIAL THROMBOPLASTIN TIME 30 SECONDS (22-32)
[2020-03-25 05:30] LABS: ALANINE AMINOTRANSFERASE 114 U/L (12-78); ALBUMIN 1.9 G/DL (3.4-5.0); ALBUMIN/GLOBULIN RATIO 0.6 (1.1-1.5); ALKALINE PHOSPHATASE 88 IU/L (46-116); ANION GAP 4 (8-16); ASPARTATE AMINO TRANSFERASE 64 U/L (10-37); BILIRUBIN,TOTAL 0.5 MG/DL (0.1-1.0); BLOOD UREA NITROGEN 8 MG/DL (7-18); BUN/CREATININE RATIO 10.8 (5.4-32.0); CALCIUM 7.5 MG/DL (8.5-10.1); CHLORIDE 104 MMOL/L (99-107); CREATININE 0.74 MG/DL (0.60-1.10); GLUCOSE 105 MG/DL (70-104); MAGNESIUM 1.9 MG/DL (1.5-2.4); POTASSIUM 3.9 MMOL/L (3.5-5.1); PREALBUMIN 13.4 MG/DL (19-36); SODIUM 137 MMOL/L (135-145); TOTAL CARBON DIOXIDE 28.8 MMOL/L (24-32); TOTAL PROTEIN 5.3 G/DL (6.4-8.2); eGFR > 90 ML/MIN
--- NOTE | 2020-03-25 06:09 | NUR ---
Problems reprioritized. Patient report given, questions answered & plan of care reviewed with BRAD Nesbitt.
--- NOTE | 2020-03-25 06:43 | NUR ---
Patient in room [facility] 344. I have received report from Oscar Schulte and had the opportunity to ask questions and assume patient care.
[2020-03-25] MEDS: pantoprazole 40mg Tablet.DR PO SCH (07:13)
[2020-03-25] MEDS: methadone 10mg tablet PO SCH (07:13)
[2020-03-25 08:00] VITALS: BP 134/81
[2020-03-25] MEDS ORDERED: METH5SOL PO (08:14)
[2020-03-25 11:00] VITALS: BP 130/80
[2020-03-25] MEDS: JUVEN Shake w/Arg/Glut/Ca2+Bmb (Juven 19.3gm) pkt 240ml PO SCH ×2 (12:30→18:03)
[2020-03-25] MEDS: fentaNYL 25MCG/hour patch.TD72 TD SCH (15:09)
--- NOTE | 2020-03-25 15:33 | NUR ---
Chest tube removed per Dr Fernandez. Pt tolerated procedure well. No SOB or c/o pain. C-Xray in progress. Addendum: 03/25/20 at 1538 by Essie Ruffin RN 210 ml of serosanguineous fluids collected in the chamber.
--- NOTE | 2020-03-25 16:09 | NUR ---
C-Xray resulted. There is question of a trace right apical pneumothorax. Dr Fernandez would like pt to stay for observation until tomorrow morning. Pt informed.
[2020-03-25] MEDS: LORazepam 2 mg/ml vial IV PRN (17:36)
--- NOTE | 2020-03-25 18:41 | NUR ---
Patient in room [facility] 344. I have received report from Essie SALINAS and had the opportunity to ask questions and assume patient care.
--- NOTE | 2020-03-25 18:46 | NUR ---
Problems reprioritized. Patient report given, questions answered & plan of care reviewed with BRAD Becerril. Pt was upset about not going home today. PRN Ativan provided for anxiety.
[2020-03-25 19:00] VITALS: BP 135/81
[2020-03-25] MEDS: enoxaparin 40mg/0.4ml syringe SUBCUT SCH (19:15)
[2020-03-25] MEDS: insulin glargine (Lantus) pen - multi-dose SQ SCH (21:00)
[2020-03-26] VITALS: BP 126/82
[2020-03-26] MEDS: LORazepam 2 mg/ml vial IV PRN ×2 (00:42→12:09)
[2020-03-26 05:55] LABS: BASOPHILS # (AUTO) 0.1 X10'3 (0-0.2); BASOPHILS % (AUTO) 0.5 % (0-1); EOSINOPHILS # (AUTO) 0.7 X10'3 (0-0.9); EOSINOPHILS % (AUTO) 4.6 % (0-6); HEMATOCRIT 29.3 % (42.0-52.0); HEMOGLOBIN 9.5 g/dl (14.0-17.9); LYMPHOCYTES # (AUTO) 3.2 X10'3 (1.1-4.8); LYMPHOCYTES % (AUTO) 21.9 % (21-51); MEAN CORPUSCULAR HEMOGLOBIN 28.1 PG (27.0-31.0); MEAN CORPUSCULAR HGB CONC 32.4 g/dL (33.0-36.5); MEAN CORPUSCULAR VOLUME 86.7 FL (78-98); MEAN PLATELET VOLUME 7.4 FL (7.4-10.4); MONOCYTES # (AUTO) 1.3 X10'3 (0-0.9); MONOCYTES % (AUTO) 8.8 % (2-12); NEUTROPHILS # (AUTO) 9.5 X10'3 (1.8-7.7); NEUTROPHILS % (AUTO) 64.2 % (42-75); PLATELET COUNT 603 X10'3 (140-440); RED BLOOD COUNT 3.38 X10'6 (4.70-6.10); RED CELL DISTRIBUTION WIDTH 17.3 % (11.5-14.5); WHITE BLOOD COUNT 14.8 X10'3 (4.5-11.0)
[2020-03-26 06:05] LABS: PARTIAL THROMBOPLASTIN TIME 31 SECONDS (22-32)
[2020-03-26 06:08] LABS: ALANINE AMINOTRANSFERASE 125 U/L (12-78); ALBUMIN/GLOBULIN RATIO 0.5 (1.1-1.5); ALKALINE PHOSPHATASE 107 IU/L (46-116); ANION GAP 3 (8-16); ASPARTATE AMINO TRANSFERASE 59 U/L (10-37); BILIRUBIN,TOTAL 0.4 MG/DL (0.1-1.0); BLOOD UREA NITROGEN 10 MG/DL (7-18); BUN/CREATININE RATIO 12.8 (5.4-32.0); CHLORIDE 103 MMOL/L (99-107); CREATININE 0.78 MG/DL (0.60-1.10); GLUCOSE 117 MG/DL (70-104); MAGNESIUM 2.3 MG/DL (1.5-2.4); PHOSPHORUS 3.8 MG/DL (2.3-4.5); POTASSIUM 4.2 MMOL/L (3.5-5.1); SODIUM 138 MMOL/L (135-145); TOTAL CARBON DIOXIDE 31.7 MMOL/L (24-32); TOTAL PROTEIN 5.8 G/DL (6.4-8.2); eGFR > 90 ML/MIN
--- NOTE | 2020-03-26 06:33 | NUR ---
Problems reprioritized. Patient report given, questions answered & plan of care reviewed with Nano SALINAS.
--- NOTE | 2020-03-26 06:55 | NUR ---
Patient in room [facility] 344. I have received report from raphael SALINAS and had the opportunity to ask questions and assume patient care.
[2020-03-26 07:00] VITALS: BP 111/71
[2020-03-26] MEDS ORDERED: methadone 10mg tablet PO SCH (08:00)
[2020-03-26] MEDS: pantoprazole 40mg Tablet.DR PO SCH (08:03)
[2020-03-26 11:00] VITALS: BP 112/76
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
--- NOTE | 2020-03-26 12:12 | NUR ---
Ativan given for anxiety and agitation with effect will monitor.
--- NOTE | 2020-03-26 12:21 | NUR ---
patient seen by Dr Gallito grimes to go home . patent aware
--- NOTE | 2020-03-26 14:36 | NUR ---
[facility]. wound care done and supplies given. Patient set up with appointment to [facility] 6 1100am. patient aware. All DC instructions given to patient. patient extremly inpatient to leave. DC home via private car with significant other in stable condition. 1330hrs.
--- NOTE | 2020-03-27 10:25 | NUR ---
Shae Collins called to Verify that patient was receiving Methadone her and when he received last dose and how often,. Received via fax machine authorization to release information. Patient received 140mg PO daily first dose 03/26 @803 am. Med rec shows patient takes 139mg PO daily
--- NOTE | 2020-03-27 15:05 | NUR ---
CASE MANAGEMENT DISCHARGE FOLLOW UP: Attempt to contact pt by phone, left message requesting call back.
== END 2020-03-26 13:30 | disposition home or self-care (01) | DRG 911 ==
LOC: ER 19:11 → EEVIPCON 19:11 → ICU 2S 23:19 → UNDOADMIN 23:19 → SUR 3N 03-22 15:09
PROVIDERS: ADMIT Surgery; ATTEND Surgery
PROC: 0BH17EZ Insertion of Endotracheal Airway into Trachea, Via Natural or Artificial Opening (ICD-10-PCS; 2020-03-14)
PROC: 30233N1 Transfusion of Nonautologous Red Blood Cells into Peripheral Vein, Percutaneous Approach (ICD-10-PCS; 2020-03-14)
PROC: 30233M1 Transfusion of Nonautologous Plasma Cryoprecipitate into Peripheral Vein, Percutaneous Approach (ICD-10-PCS; 2020-03-14)
PROC: BW251ZZ Computerized Tomography (CT Scan) of Chest, Abdomen and Pelvis using Low Osmolar Contrast (ICD-10-PCS; 2020-03-14)
PROC: BP2K1ZZ Computerized Tomography (CT Scan) of Left Forearm using Low Osmolar Contrast (ICD-10-PCS; 2020-03-14)
PROC: 0DQ60ZZ Repair Stomach, Open Approach (ICD-10-PCS; 2020-03-14)
PROC: 5A1955Z Respiratory Ventilation, Greater than 96 Consecutive Hours (ICD-10-PCS; principal; 2020-03-14 21:00)
PROC: 30233K1 Transfusion of Nonautologous Frozen Plasma into Peripheral Vein, Percutaneous Approach (ICD-10-PCS; 2020-03-15)
PROC: 0PSJ04Z Reposition Left Radius with Internal Fixation Device, Open Approach (ICD-10-PCS; 2020-03-16)
PROC: 0HBEXZZ Excision of Left Lower Arm Skin, External Approach (ICD-10-PCS; 2020-03-16)
PROC: 0WPF0YZ Removal of Other Device from Abdominal Wall, Open Approach (ICD-10-PCS; 2020-03-19)
DX: S21.132A Puncture wound without foreign body of left front wall of thorax without penetration into thoracic cavity, initial encounter (principal); S27.1XXA Traumatic hemothorax, initial encounter; S36.113A Laceration of liver, unspecified degree, initial encounter; F12.90 Cannabis use, unspecified, uncomplicated; F15.90 Other stimulant use, unspecified, uncomplicated; F31.9 Bipolar disorder, unspecified; I10 Essential (primary) hypertension; J45.909 Unspecified asthma, uncomplicated; Z60.2 Problems related to living alone; S31.139A Puncture wound of abdominal wall without foreign body, unspecified quadrant without penetration into peritoneal cavity, initial encounter; Z20.822 Contact with and (suspected) exposure to COVID-19; J95.821 Acute postprocedural respiratory failure; F41.9 Anxiety disorder, unspecified; S52.392A Other fracture of shaft of radius, left arm, initial encounter for closed fracture; G89.29 Other chronic pain; M54.9 Dorsalgia, unspecified; I95.9 Hypotension, unspecified; S41.132A Puncture wound without foreign body of left upper arm, initial encounter; W34.00XA Accidental discharge from unspecified firearms or gun, initial encounter; Z79.899 Other long term (current) drug therapy
CPT/HCPCS: 36415; 36430; 36600; 71045; 71260; 73090; 73206; 74018; 74177; 80053; 80305; 81001; 82330; 82803; 82948; 83036; 83605; 83735; 84100; 84132; 84134; 84145; 84478; 84484; 85007; 85018; 85025; 85027; 85379; 85384; 85610; 85730; 86885; 86900; 86901; 86920; 87040; 87070; 87081; 87635; 90715; 93005; 94002; 94003; 94640; 94760; 96374; 97110; 97116; 97162; 97530; 99291; A4618; A6222; A6223; A6253; A6258; A6402; A6449; A7000; A7048; C1713; C9113; C9803; G0378; J0131; J0690; J1170; J1580; J1644; J1650; J1815; J2001; J2060; J2250; J2270; J2405; J2704; J2710; J3010; J3480; J3490; J7030; J7040; J7060; J7120; P9012; P9016; P9045; P9059; Q9967

== ENCOUNTER 2020-05-01 02:49 | Emergency (ER) | payer MEDICAID ==
[~2020-05-01] VITALS: Ht 182.9 cm; Wt 79.5 kg
[~2020-05-01 02:49] MED LIST changes: -CEPH500C5 PO; -CHLO10MO PO; -CIPR7.5D2 EACH EAR; -HYDR-3686 PO; -HYDR-4383 PO; -KEN0.1O TP; +METH5SOL PO; -MUPI15CR TOP; -NO HOME MEDS; -PHEN-716 PO
[2020-05-01] MEDS ORDERED: LIDOcaine/PRILOcaine 5gm cream TP ONE (03:15)
[2020-05-01] MEDS ORDERED: clindamycin 150mg capsule PO ONE (03:20)
[2020-05-01] MEDS ORDERED: SULF1TAB49 PO (04:06)
[2020-05-01 04:19] VITALS: BP 128/94
== END 2020-05-01 04:22 | disposition home or self-care (01) ==
LOC: ER 02:50
DX: L02.216 Cutaneous abscess of umbilicus (principal); I10 Essential (primary) hypertension; J45.909 Unspecified asthma, uncomplicated; G89.29 Other chronic pain; F41.9 Anxiety disorder, unspecified; F31.9 Bipolar disorder, unspecified; F12.90 Cannabis use, unspecified, uncomplicated; F15.90 Other stimulant use, unspecified, uncomplicated; F11.90 Opioid use, unspecified, uncomplicated; Z98.890 Other specified postprocedural states; Z60.2 Problems related to living alone; Z79.2 Long term (current) use of antibiotics; Z79.899 Other long term (current) drug therapy
CPT/HCPCS: 10060; 99283

== ENCOUNTER 2020-09-04 16:34 | Emergency (ER) | payer MEDICAID ==
[2020-09-05] MEDS ORDERED: SULF1TAB49 PO (00:05)
[2020-09-05] MEDS ORDERED: CEPH-585 PO (00:05)
== END 2020-09-04 18:24 | disposition left against medical advice (07) ==
LOC: ER 16:34
DX: R22.9 Localized swelling, mass and lump, unspecified (principal); Z53.21 Procedure and treatment not carried out due to patient leaving prior to being seen by health care provider

== ENCOUNTER 2020-09-04 23:14 | Emergency (ER) | payer MEDICAID ==
[~2020-09-04] VITALS: Ht 182.9 cm; Wt 86.4 kg
[2020-09-04 23:41] VITALS: BP 137/100
[2020-09-05] MEDS ORDERED: CEPH-585 PO (00:05)
[2020-09-05] MEDS ORDERED: SULF1TAB49 PO (00:05)
== END 2020-09-05 00:18 | disposition home or self-care (01) ==
LOC: ER 23:16
DX: L02.212 Cutaneous abscess of back [any part, except buttock and flank] (principal); G89.29 Other chronic pain; F41.9 Anxiety disorder, unspecified; F31.9 Bipolar disorder, unspecified; F12.90 Cannabis use, unspecified, uncomplicated; F15.90 Other stimulant use, unspecified, uncomplicated; F11.90 Opioid use, unspecified, uncomplicated; Z98.890 Other specified postprocedural states; Z60.2 Problems related to living alone; Z79.2 Long term (current) use of antibiotics; Z79.899 Other long term (current) drug therapy
CPT/HCPCS: 99284

== ENCOUNTER 2021-01-15 22:20 | Emergency (ER) | payer MEDICAID ==
[~2021-01-15] VITALS: Ht 182.9 cm; Wt 86.0 kg
[~2021-01-15 22:20] MED LIST changes: +CEPH-585 PO
[2021-01-16 00:17] VITALS: BP 142/105
== END 2021-01-16 08:50 | disposition left against medical advice (07) ==
LOC: ER 22:20
DX: M79.602 Pain in left arm (principal); Z53.21 Procedure and treatment not carried out due to patient leaving prior to being seen by health care provider
CPT/HCPCS: 93005

== ENCOUNTER 2021-08-31 19:54 | Emergency (ER) | payer MEDICAID ==
[~2021-08-31] VITALS: Ht 182.9 cm; Wt 81.8 kg
[2021-08-31 20:08] VITALS: BP 131/90
[2021-08-31] MEDS ORDERED: AMOX-580 PO (23:38)
[2021-08-31] MEDS ORDERED: PSEU-259 PO (23:52)
[2021-08-31] MEDS ORDERED: HYDR-3965 PO (23:52)
[2021-09-01] MEDS ORDERED: HYDROcodone/acetaminophen 5mg/325mg tablet PO ONE
[2021-09-01] MEDS ORDERED: amox tr/potassium clavulanate 875/125mg TAB PO ONE
--- NOTE | 2021-09-01 00:14 | NUR ---
po med given
== END 2021-09-01 00:14 | disposition home or self-care (01) ==
LOC: VAS 19:54 → ER 09-01 00:14
DX: S02.2XXA Fracture of nasal bones, initial encounter for closed fracture (principal); J45.909 Unspecified asthma, uncomplicated; I10 Essential (primary) hypertension; G89.29 Other chronic pain; M54.9 Dorsalgia, unspecified; F31.9 Bipolar disorder, unspecified; F12.10 Cannabis abuse, uncomplicated; F15.10 Other stimulant abuse, uncomplicated; F11.10 Opioid abuse, uncomplicated; Z79.899 Other long term (current) drug therapy; Y04.8XXA Assault by other bodily force, initial encounter; Y93.89 Activity, other specified; Y92.89 Other specified places as the place of occurrence of the external cause; Y99.8 Other external cause status
CPT/HCPCS: 70450; 70486; 99284

== ENCOUNTER 2022-05-23 05:13 | Emergency (ER) | payer MEDICAID ==
[~2022-05-23] VITALS: Ht 182.9 cm; Wt 72.0 kg
[~2022-05-23 05:13] MED LIST changes: -CEPH-585 PO; +PSEU-259 PO
[2022-05-23 07:36] VITALS: BP 128/88
--- NOTE | 2022-05-23 07:41 | NUR ---
Patient has been talking fast at times, sometimes will joke around. He abriptly telling me about he needed to get out of here hoepfully sooner.
[2022-05-23] MEDS ORDERED: ketorolac trometh. 30mg/ml inj. IM ONE (07:45)
[2022-05-23] MEDS ORDERED: IBUP-1986 PO (07:47)
[2022-05-23] MEDS ORDERED: ORPH100T2 PO (07:47)
[2022-05-23 08:22] LABS: CLARITY,URINE SLIGHTLY CLOUDY (Clear); COLOR,URINE YELLOW (Yellow); GLUCOSE, URINE NEGATIVE (Neg); KETONES,URINE TRACE mg/dl (Neg); LEUKOCYTE ESTERASE ,URINE NEGATIVE (Neg); NITRITES, URINE NEGATIVE (Neg); OCCULT BLOOD,URINE NEGATIVE (Neg); PROTEIN,URINE NEGATIVE (Neg); UROBILINOGEN,URINE 0.2 E.U/dL (0.2-1.0)
[2022-05-23 08:37] LABS: URINE AMPHETAMINE SCREEN POSITIVE (Neg); URINE BARBITUATE SCREEN NEGATIVE (Neg); URINE BENZODIAZEPINES SCREEN NEGATIVE (Neg); URINE CANNABINOID SCREEN NEGATIVE (Neg); URINE COCAINE SCREEN NEGATIVE (Neg); URINE METHADONE SCREEN POSITIVE (Neg); URINE OPIATE SCREEN NEGATIVE (Neg); URINE PHENCYCLIDINE SCREEN NEGATIVE (Neg)
[2022-05-23 08:39] LABS: UA COLLECTION TYPE CLN CATCH MIDSTREAM
[2022-05-23 08:40] LABS: MUCUS STRANDS MANY /LPF (Neg); SQUAMOUS EPITHELIAL CELL,UR FEW /LPF (FEW)
[2022-05-23 08:41] LABS: BACTERIA,URINE FEW /HPF (Neg); RBC,URINE 0-2 /HPF (0-2); TRANSITIONAL EPI CELLS,URINE FEW /HPF; WBC,URINE 0-4 /HPF (0-4)
== END 2022-05-23 08:15 | disposition home or self-care (01) ==
LOC: ER 05:13
DX: S39.012A Strain of muscle, fascia and tendon of lower back, initial encounter (principal); R05.9 Cough, unspecified; G89.29 Other chronic pain; M54.9 Dorsalgia, unspecified; I10 Essential (primary) hypertension; J45.909 Unspecified asthma, uncomplicated; F31.9 Bipolar disorder, unspecified; F12.10 Cannabis abuse, uncomplicated; F15.10 Other stimulant abuse, uncomplicated; F11.10 Opioid abuse, uncomplicated; Z79.899 Other long term (current) drug therapy; X58.XXXA Exposure to other specified factors, initial encounter; Y93.89 Activity, other specified; Y92.89 Other specified places as the place of occurrence of the external cause; Y99.8 Other external cause status
CPT/HCPCS: 80305; 81001; 96372; 99283; J1885

== ENCOUNTER 2022-07-02 22:08 | Emergency (ER) | payer MEDICAID ==
[~2022-07-02 22:08] MED LIST changes: +IBUP-1986 PO; +ORPH100T4 PO
== END 2022-07-02 22:38 | disposition left against medical advice (07) ==
LOC: ER 22:10
DX: I10 Essential (primary) hypertension (principal); Z53.21 Procedure and treatment not carried out due to patient leaving prior to being seen by health care provider

== ENCOUNTER 2022-07-16 06:07 | Emergency (ER) | payer MEDICAID ==
[~2022-07-16] VITALS: Ht 182.9 cm; Wt 81.4 kg
[2022-07-16] MEDS ORDERED: azithromycin 250mg tablet PO ONE (06:55)
[2022-07-16] MEDS ORDERED: CEFTRIAXONE 500 MG VIAL IM ONE (06:55)
[2022-07-16 07:02] VITALS: BP 127/86
[2022-07-16] MEDS ORDERED: CefTRIAXone 500MG IM Kit w/LIDOcaine IM ONE (07:05)
== END 2022-07-16 09:17 | disposition home or self-care (01) ==
LOC: ER 06:08
DX: S92.321A Displaced fracture of second metatarsal bone, right foot, initial encounter for closed fracture (principal); X58.XXXA Exposure to other specified factors, initial encounter; Y93.9 Activity, unspecified; Y92.89 Other specified places as the place of occurrence of the external cause; Y99.8 Other external cause status
CPT/HCPCS: 73630; 96372; 99283; J0696; L4360

== ENCOUNTER 2022-07-28 19:32 | Emergency (ER) | payer MEDICAID | END 2022-07-28 21:33 | disposition left against medical advice (07) | LOC: ER 19:32 | DX: M79.673 Pain in unspecified foot (principal); Z53.21 Procedure and treatment not carried out due to patient leaving prior to being seen by health care provider ==

== ENCOUNTER 2022-09-27 13:33 | Emergency (ER) | payer MEDICAID | END 2022-09-27 14:37 | disposition left against medical advice (07) | LOC: ER 13:33 | DX: T63.301A Toxic effect of unspecified spider venom, accidental (unintentional), initial encounter (principal); Z53.21 Procedure and treatment not carried out due to patient leaving prior to being seen by health care provider; X58.XXXA Exposure to other specified factors, initial encounter; Y93.89 Activity, other specified; Y92.89 Other specified places as the place of occurrence of the external cause; Y99.8 Other external cause status ==

== ENCOUNTER 2023-12-07 15:40 | Emergency (ER) | payer MEDICAID ==
[~2023-12-07] VITALS: Ht 182.9 cm; Wt 102.3 kg
[2023-12-07] MEDS ORDERED: CEPH-585 PO (17:17)
[2023-12-07 17:38] VITALS: BP 144/78; PULSE 78; RESP 18; TEMP 98.1; O2SAT 99
[2023-12-07] MEDS: LIDOcaine 1% W/epiNEPHrine 1:100,000 20ml vial SQ ONE (17:40)
== END 2023-12-07 17:44 | disposition home or self-care (01) ==
LOC: ER 15:41
DX: S50.811A Abrasion of right forearm, initial encounter (principal); I10 Essential (primary) hypertension; J45.909 Unspecified asthma, uncomplicated; G89.29 Other chronic pain; M54.9 Dorsalgia, unspecified; F32.A Depression, unspecified; F12.90 Cannabis use, unspecified, uncomplicated; F15.90 Other stimulant use, unspecified, uncomplicated; Z79.1 Long term (current) use of non-steroidal anti-inflammatories (NSAID); Z79.2 Long term (current) use of antibiotics; Z79.899 Other long term (current) drug therapy; W19.XXXA Unspecified fall, initial encounter; Y93.89 Activity, other specified; Y92.89 Other specified places as the place of occurrence of the external cause; Y99.8 Other external cause status
CPT/HCPCS: 99283; A6222; J3490; A6258

== ENCOUNTER 2024-06-17 13:58 | Emergency (ER) | payer MEDICAID ==
[~2024-06-17] VITALS: Ht 182.9 cm; Wt 89.3 kg
[2024-06-17 14:42] LABS: BILIRUBIN,URINE NEGATIVE (Neg); CLARITY,URINE CLEAR (Clear); COLOR,URINE YELLOW (Yellow); GLUCOSE, URINE NEGATIVE (Neg); KETONES,URINE NEGATIVE (Neg); LEUKOCYTE ESTERASE ,URINE NEGATIVE (Neg); NITRITES, URINE NEGATIVE (Neg); OCCULT BLOOD,URINE NEGATIVE (Neg); PROTEIN,URINE NEGATIVE (Neg); UROBILINOGEN,URINE 0.2 E.U/dL (0.2-1.0)
[2024-06-17 14:45] LABS: UA COLLECTION TYPE CLN CATCH MIDSTREAM
[2024-06-17 16:04] VITALS: BP 134/74; PULSE 83; RESP 17; TEMP 98.1; O2SAT 98
== END 2024-06-17 16:05 | disposition home or self-care (01) ==
LOC: ER 13:59
DX: A64 Unspecified sexually transmitted disease (principal); I10 Essential (primary) hypertension; J45.909 Unspecified asthma, uncomplicated; G89.29 Other chronic pain; M54.9 Dorsalgia, unspecified; F41.9 Anxiety disorder, unspecified; F32.A Depression, unspecified; F12.90 Cannabis use, unspecified, uncomplicated; F15.90 Other stimulant use, unspecified, uncomplicated; F11.90 Opioid use, unspecified, uncomplicated; Z79.1 Long term (current) use of non-steroidal anti-inflammatories (NSAID); Z79.899 Other long term (current) drug therapy
CPT/HCPCS: 36415; 81003; 87491; 99283

== ENCOUNTER 2024-12-26 15:53 | Emergency (ER) | payer MEDICAID ==
[~2024-12-26] VITALS: Ht 182.9 cm; Wt 81.8 kg
[2024-12-26 15:58] VITALS: BP 122/86; PULSE 84; RESP 14; TEMP 98.5; O2SAT 98
[2024-12-26] MEDS: DOXYCYCLINE 100MG CAPSULE PO STA (16:03)
--- NOTE | 2024-12-26 16:09 | Physician Documentation ---
History of Present Illness ~ Chief Complaint: STD Stated Complaint: SEE CHIEF COMPAINT Time Seen by MD: 16:03 Primary Medical Doctor: none HPI This is a 39-year-old male with past history of syphilis who presents with three days of dysuria, patient reports no discharge or penile lesions. Patient reports possible exposure to STI recently as he has had unprotected sex with a new partner. Medication Reconciliation Allergies: Coded Allergies: No Known Allergies (Unverified , 05/23/22) Scheduled Ibuprofen (Ibuprofen), 1 TAB PO Q8H Methadone HCl (Methadone HCl), 139 MG PO DAILY, (Reported) Orphenadrine Citrate (Norflex), 1 TAB PO Q12H PRN Pseudoephedrine Hcl (SUDAFED tablet), 1 TAB PO Q8H Past Medical History Past Medical History: Hypertension, Asthma, Chronic Pain, Chronic Back Pain, Anxiety, Bipolar, Depression Past Surgical History: abdominal surgery, other Other Past Surgical History: ex lap, splenectomy, left lung removal Alcohol Use: None Drug Use: marijuana, methamphetamine, heroin Lives with: Alone Lives In: Home Occupation: employed Review of Systems ROS As stated above in the HPI, otherwise all systems are reviewed and negative. Physical Exam Vital Signs: Temperature: 98.5, Source: Temporal, Heart Rate: 84, Respiratory Rate: 14, BP: 122/86, Pulse Oximetry: 98, Weight: 81.820 Oxygen Flow Rate: 0 Physical Exam VITALS: Reviewed and as above. GENERAL: Alert, nontoxic appearing, no apparent distress. RESPIRATORY: No increased work of breathing, no respiratory distress, speaking in full clear sentences SKIN: No rash to skin of the arms or palms Progress Results/Orders Results/Orders Orders - FAHEEM GRIFFITH Chlam/Gc Amp Ur (12/26/24 16:03) RPR (12/26/24 16:03) Completed Orders - FAHEEM GRIFFITH Hiv Ab 1&2 Rapid Scn (12/26/24 16:03) Ceftriaxone 500 Im W/Lidocaine (Rocephin (12/26/24 16:05) Doxycycline 100mg Capsule (Vibramycin 10 (12/26/24 16:03) Azithromycin Tablet (Zithromax Tablet) (12/26/24 17:25) Ondansetron Disint. Tablet (Zofran Odt T (12/26/24 17:25) Vital Signs 12/26/24 15:58 Temp 98.5 Pulse 84 Resp 14 B/P (MAP) 122/86 Pulse Ox 98 O2 Flow Rate 0 Laboratory Tests Test 12/26/24 16:04 12/26/24 16:40 HIV (1&2) Antibody Non-reactive Medical Decision Making Findings This otherwise well 39-year-old male presented with one-week of dysuria, patient reports possible for STI due to unprotected sex. Patient reports no other acute symptoms or concerns including no penile discharge, rash, fever, or penile lesion. Patient empirically treated for gonorrhea and chlamydia. Patient is to follow up for lab results in one-week and follow up with primary care provider. The patient was provided home care instructions, follow up instructions, and return to care precautions which he verbalized understanding of. Genital Diff Dx:Considerations: Include: Abscess, Balanitis, Cellulitis, Epididymitis, Varsha's gangrene, Foreign body, Hydrocele, Prostatitis, Syphilis, Testicular torsion, Urethritis, Urethritis-chlamydial, Urethritis- gonococcal, UTI, Other (HIV) Departure Time of Disposition: 17:29 Disposition: 01 HOME / SELF CARE / HOMELESS Impression: Primary Impression: Sexually transmitted disease Condition: Improved Discharge Instructions: Sexually Transmitted Disease Additional Instructions: It may take up to one-week for your results come back, you will need to contact medical records with the result of your tests. Please follow up with her primary care provider for further management of these symptoms and for further STI testing. Please follow up with your primary care provider in the next few days. Please return to the emergency department for any new or worsening concerning symptoms. Referrals: NO PRIMARY CARE PROVIDER (PCP) Education Educated: Patient Educated regarding: diagnosis, treatment, prognosis, need for follow up Signature Scribe Signature: No scribe Attestation: The note accurately reflects work and decisions made by me.NASIM Perez 12/27/24 11:01 Parts of this note were created using [employer] voice recognition software program. While efforts were made to correct any mistakes made by this voice recognition software program, nonsensical phrases may remain in this note. In addition, there may be errors and syntax, grammar, content and spelling. FAHEEM GRIFFITH Dec 26, 2024 16:09
[2024-12-26] MEDS: CefTRIAXone 500MG IM Kit w/LIDOcaine IM ONE (17:18)
[2024-12-26 17:43] LABS: HIV ANTIBODY 1&2 RAPID NON-REACTIVE (Neg)
[2024-12-26] MEDS: ondansetron 4mg rapidly disintigrating tab PO ONE (17:50)
[2024-12-28 13:15] LABS: RPR 1:4 titer (NonRea<1:1)
== END 2024-12-26 17:55 | disposition home or self-care (01) ==
LOC: ER 15:54
DX: A64 Unspecified sexually transmitted disease (principal); F31.9 Bipolar disorder, unspecified; F41.9 Anxiety disorder, unspecified; G89.29 Other chronic pain; I10 Essential (primary) hypertension; J45.909 Unspecified asthma, uncomplicated; F12.90 Cannabis use, unspecified, uncomplicated; F15.90 Other stimulant use, unspecified, uncomplicated; F11.90 Opioid use, unspecified, uncomplicated; Z79.899 Other long term (current) drug therapy; Z98.890 Other specified postprocedural states; Z60.2 Problems related to living alone
CPT/HCPCS: 36415; 86592; 86703; 87491; 87591; 96372; 99283; J0696

== ENCOUNTER 2025-02-21 10:54 | Emergency (ER) | payer SELFPAY ==
[~2025-02-21] VITALS: Ht 182.9 cm; Wt 77.9 kg
[2025-02-21 10:59] VITALS: BP 141/87; PULSE 67; RESP 18; TEMP 98.2; O2SAT 98
--- NOTE | 2025-02-21 11:11 | ELECTROCARDIOGRAPH REPORT ---
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 VANESSA Delgadillo Measurements Intervals [place] Rate: 69 P: 75 MI: 141 QRS: 74 QRSD: 90 T: 53 QT: 389 QTc: 417 Interpretive Statements Sinus rhythm Electronically Signed On 02-22-2025 16:55:[address] VANESSA Delgadillo Please click the below link to view image of tracing.
[2025-02-21] MEDS ORDERED: HYDR-3686 PO (11:38)
--- NOTE | 2025-02-21 11:39 | Physician Documentation ---
History of Present Illness ~ Chief Complaint: Chest Pain Stated Complaint: ANXIETY Time Seen by MD: 11:10 Primary Medical Doctor: kaiden HPI 39-year-old male presents to the ED with a complaint of a severe panic attack. States that he has some chest pain arm numbness in nausea he adds that he does not have any cardiac history. However he does have a assisted history and has been working for a [employer] company for six-month he feels as though his [employer] is trying to get him fired. Patient is adamant that he is trying his best and that he has not missed any work in is fearful for his job. He is open about his anxiety. States he does not want any controlled medications but is requesting something to help him sleep this evening Day of Onset: Feb 21, 2025 Medication Reconciliation Allergies: Coded Allergies: No Known Allergies (Unverified , 02/21/25) Scheduled Ibuprofen (Ibuprofen), 1 TAB PO Q8H Methadone HCl (Methadone HCl), 139 MG PO DAILY, (Reported) Orphenadrine Citrate (Norflex), 1 TAB PO Q12H PRN Pseudoephedrine Hcl (SUDAFED tablet), 1 TAB PO Q8H Past Medical History Past Medical History: Hypertension, Asthma, Chronic Pain, Chronic Back Pain, Anxiety, Bipolar, Depression Past Surgical History: abdominal surgery, other Other Past Surgical History: ex lap, splenectomy, left lung removal Alcohol Use: None Drug Use: marijuana, methamphetamine, heroin Lives with: Alone Lives In: Home Occupation: employed Review of Systems All Other Systems at this time: Reviewed and Negative ROS As stated above in the HPI, otherwise all systems are reviewed and negative. Physical Exam Vital Signs: Temperature: 98.2, Heart Rate: 67, Respiratory Rate: 18, BP: 141/87, Pulse Oximetry: 98, Weight: 77.900 Oxygen Flow Rate: 0 Physical Exam General: Alert, no apparent distress. HEENT: PERRL, EOMI, no injection, moist mucous membranes. Neck: Full range of motion. Respiratory: Lungs clear, no respiratory distress. Chest: No accessory muscle use. Cardiovascular: Regular rate and rhythm, no murmurs. Gastrointestinal: Soft, nontender, nondistended. Bowels sounds present. Extremities: Normal range of motion, no deformity. Neurologic: Oriented x4. Psychiatric: Normal mood and affect. Skin: Normal color, warm and dry. No edema, no ecchymosis. Progress Results/Orders Results/Orders Vital Signs 02/21/25 10:59 Temp 98.2 Pulse 67 Resp 18 B/P (MAP) 141/87 Pulse Ox 98 O2 Flow Rate 0 Medical Decision Making Additional information obtaine: old records Findings Discussed with the patient that he would likely benefit from a different place of employment. He is receptive to this. I connected him with local resources. This seemed to reassure him and helped to decrease his anxiety. Decided that I would send him home with a short script of hydroxyzine to help with sleep Heart Score: 1 Differential Dx:Considerations: Include: angina, aortic dissection, chest wall pain, cholelithiasis, CHF, costochondritis, esophageal reflux/spasm, gastritis, herpes zoster, myocardial infarction, pericarditis, pleuritis, pancreatitis, pneumonia, pneumothorax, pulmonary embolus, other Departure Disposition: 01 HOME / SELF CARE / HOMELESS Impression: Primary Impression: Right foot pain Additional Impression: Anxiety about health Condition: Stable Discharge Instructions: Generalized Anxiety Disorder, Adult Referrals: NO PRIMARY CARE PROVIDER (PCP) Prescriptions Hydroxyzine Hcl* (Atarax*) 25 Mg Tablet 1 TAB PO Q12H for anxiety for 30 Days, #60 TAB Prov: FABRICIO PERRY PLASTIC DUPLICATOR 02/21/25 Education Educated: Patient Educated regarding: diagnosis Signature Scribe Signature: g Attestation: Scribed for Fabricio Perry Manager Of Internal Audit by Fabricio Perry - ANJUM . 02/21/25 11:38 FABRICIO PERRY PLASTIC DUPLICATOR Feb 21, 2025 11:39
--- NOTE | 2025-02-21 12:01 | RADIOLOGY REPORT ---
CHEST RADIOGRAPH Indication: CP Technique: Single frontal view of the chest was obtained Comparison: CHEST,SINGLE VIEW on DOS: 03/26/20, CHEST,SINGLE VIEW on DOS: 03/25/20, CHEST,SINGLE VIEW on DOS: 03/20/20, CHEST,SINGLE VIEW on DOS: 03/19/20, CHEST,SINGLE VIEW on DOS: 03/18/20 FINDINGS: Lines and Tubes: None Lungs: No focal consolidation. Pleura: Small right pleural effusion No pneumothorax. Cardiomediastinal contours: Unremarkable Bones: No acute osseous abnormality. IMPRESSION: Small right pleural effusion.
== END 2025-02-21 12:00 | disposition home or self-care (01) ==
LOC: ER 10:54
DX: M79.671 Pain in right foot (principal); F41.9 Anxiety disorder, unspecified; F12.90 Cannabis use, unspecified, uncomplicated; F15.90 Other stimulant use, unspecified, uncomplicated; F11.90 Opioid use, unspecified, uncomplicated; F31.9 Bipolar disorder, unspecified; G89.29 Other chronic pain; I10 Essential (primary) hypertension; Z90.81 Acquired absence of spleen; Z79.899 Other long term (current) drug therapy; Z60.2 Problems related to living alone
CPT/HCPCS: 71045; 93005; 99283; J7030